=== PATIENT | male | born 1955 | race Caucasian/White ===

== ENCOUNTER 2016-11-14 05:54 | Day surgery (SDC) | payer MEDICAID, MEDICARE ==
[2016-11-14] MEDS ORDERED: Sodium Chloride 0.9% 10 ML Syringe FLUSH PRN (08:30)
[2016-11-14 11:02] VITALS: BP 136/74
--- NOTE | 2016-11-14 13:13 | OR ---
DATE OF PROCEDURE: 11/14/2016 POSTOPERATIVE CARE: Postoperative care will be provided mainly at the [address] [place] [address] [facility] in conjunction with [facility]. PREOPERATIVE DIAGNOSIS: Cataract, left eye. PREOPERATIVE DIAGNOSIS: Cataract, left eye. PROCEDURE: Phacoemulsification with intraocular lens placement, left eye. ANESTHESIA: Topical and intracameral. ESTIMATED BLOOD LOSS: Minimal. COMPLICATIONS: None. PATHOLOGY SPECIMENS: None. SURGICAL FINDINGS: None. INDICATION FOR PROCEDURE: The patient is a 60-year-old male with history of a visually significant cataract in the left eye, which interfered with activities of daily living. This consisted of a nuclear sclerosis cataract. Following careful discussion of the risks, benefits and alternatives to cataract extraction with intraocular lens placement including blindness and , the patient elected to proceed, and informed, written consent was obtained prior to the procedure. DESCRIPTION OF THE PROCEDURE: The patient was previously identified, and a yuko placed above the left eye. All sources, including the patient, indicated that the left eye was the correct eye. The patient was subsequently taken to the operating room where standard monitors were applied. The patient was then prepped and draped in the usual sterile fashion for ophthalmic surgery. Attention was first directed at the 12 o'clock position where a paracentesis port was fashioned. Shugar solution followed by Viscoat was instilled into the eye. Attention was then directed to the 8:30 position where a triplanar incision was made in a near-clear manner using a keratome. A continuous capsulorrhexis was then made using a combination of the cystotome and Utrata forceps. Hydrodissection was achieved using a balanced salt solution, and the lens rotated nicely. Phacoemulsification was then done using a modified [id number] technique without complication. Phaco time was 5.43 CDE. The remaining cortex was removed using the irrigation/aspiration handpiece. Provisc was then instilled into the eye. A Technis lens, model [id number], at 20.5 diopters was then placed in the capsular bag using an [place] injector. The remaining viscoelastic was removed using the irrigation/aspiration forceps. All wounds were then checked and found to be watertight. The lid speculum and drapes were removed. Maxitrol ointment was placed in the patient's left eye, and the eye was shielded. The patient tolerated the procedure well. The patient was instructed to follow up tomorrow. All needle and sponge counts were correct at the end of the procedure. Elsy Mix MD /[id number]
== END 2016-11-14 11:00 | disposition home or self-care (01) ==
LOC: JP.SDS 05:54
PROVIDERS: ATTEND Ophthalmology
DX: H26.9 Unspecified cataract (principal); H26.212 Cataract with neovascularization, left eye; Z88.0 Allergy status to penicillin; Z88.8 Allergy status to other drugs, medicaments and biological substances
CPT/HCPCS: 66984; C1780

== ENCOUNTER 2016-11-30 11:53 | Emergency (ER) | payer MEDICAID, MEDICARE ==
[2016-11-30 12:24] VITALS: BP 145/78
--- NOTE | 2016-11-30 12:57 | EDM.PDOC ---
[id number] LEFT ARM RASH? BRUISE? EDEMA? Time Seen by Provider: 11/30/16 12:53 Source: Reports: Patient, Family History Limitations: Reports: No limitations - History of Present Illness INITIAL COMMENTS - FREE TEXT/NARRATIVE: Pt arrived with brising in the left forearm. He was seen on the with a possible muscle pull from throwing wood. Timing: Reports: still present Location, Skin: Reports: upper extremity, left Associated symptoms: Reports: denies other symptoms, other ( no other areas of marked bruising. ) - Related Data Allergies Allergy/AdvReac Type Severity Reaction Status Date / Time ibuprofen Allergy Hives Verified 11/30/16 12:24 lidocaine Allergy Hives Verified 11/30/16 12:24 Penicillins Allergy Hives Verified 11/30/16 12:24 Home Meds: Ambulatory Orders Medication Instructions Recorded Confirmed Aspirin/Calcium Carbonate/Mag 325 mg PO DAILY 03/11/14 11/22/16 [Aspirin Buffered 325 mg Tab] Bisoprolol/Hydrochlorothiazide 1 tab PO DAILY 03/11/14 11/22/16 [Bisoprolol/HCTZ 10-6.25 MG] Cetirizine [ZyrTEC] 10 mg PO BID PRN 03/11/14 11/22/16 Lisinopril [Zestril] 20 mg PO DAILY 03/11/14 11/22/16 Lutz-3 Acid Ethyl Esters 2 gm PO BIDAC 03/11/14 11/22/16 Simvastatin [Zocor] 10 mg PO DAILY 03/11/14 11/22/16 SitaGLIPtin [Januvia] 100 mg PO DAILY 03/11/14 11/22/16 atoMOXetine [Strattera] 80 mg PO DAILY 03/11/14 11/22/16 busPIRone HCl [Buspirone HCl] 15 mg PO BID 03/11/14 11/22/16 metFORMIN [Glucophage] 1,000 mg PO BIDM 03/11/14 11/22/16 metFORMIN [Glucophage] 500 mg PO DAILY 03/11/14 11/22/16 Acetaminophen [Tylenol] 325 mg PO Q4H PRN 08/13/14 11/22/16 FLUoxetine [PROzac] 10 mg PO DAILY 08/13/14 11/22/16 Pregabalin [Lyrica] 75 mg PO TID 08/13/14 11/22/16 Sennosides/Docusate Sodium 1 each PO BID 08/13/14 11/22/16 [Senna-Docusate Sodium Tablet] Albuterol [Proair HFA] 1 puff IH Q4HR PRN 05/30/16 11/22/16 Baclofen [Baclofen] 10 mg PO ASDIRECTED PRN MDD 30 05/30/16 11/22/16 Betamethasone Valerate [Valisone 1 cm TP BID 05/30/16 11/22/16 0.1% Crm] Diclofenac Sodium [Voltaren 1%] 1 applic TP QID 05/30/16 11/22/16 Meclizine [Antivert] 25 mg PO TID 05/30/16 11/22/16 Meloxicam [Meloxicam] 15 mg PO DAILY 05/30/16 11/22/16 Montelukast Sodium [Singulair] 10 mg PO DAILY 05/30/16 11/22/16 Oxybutynin Chloride [Ditropan Xl] 10 mg PO DAILY 05/30/16 11/22/16 Pyrithione Zinc [Dermazinc] 1 ml TP DAILY PRN 05/30/16 11/22/16 traMADol HCl [Tramadol HCl] 50 mg PO Q6H PRN 05/30/16 11/22/16 Past Medical History HEENT History: Reports: Cataract, Impaired vision Cardiovascular History: Reports: High cholesterol, Hypertension Respiratory History: Reports: Asthma, Sleep apnea Gastrointestinal History: Reports: Cholelithiasis Psychiatric History: Reports: Anxiety, Depression Endocrine/Metabolic History: Reports: Diabetes, type II, Obesity/BMI 30+ Dermatologic History: Reports: Eczema - Infectious Disease History Infectious Disease History: Reports: Chicken pox, Measles - Past Surgical History GI Surgical History: Reports: Cholecystectomy, Colonoscopy, Hernia repair/other Musculoskeletal Surgical History: Reports: Arthroscopic knee, Hip replacement, Knee replacement, Shoulder replacement, Shoulder surgery Other Musculoskeletal Surgeries/Procedures:: right shoulder replaced tree times with infection on second replacement Social & Family History - Tobacco Use Smoking Status *Q: Former Smoker Years of Tobacco use: 3 Used Tobacco, but Quit: Yes Month Tobacco Last Used: dec Second Hand Smoke Exposure: No - Caffeine Use Caffeine Use: Reports: None - Alcohol Use Days Per Week of Alcohol Use: 1 Number of Drinks Per Day: 1 Total Drinks Per Week: 1 - Recreational Drug Use Recreational Drug Use: No ED ROS GENERAL - Review of Systems Review Of Systems: See Below Constitutional: Reports: no symptoms HEENT: Reports: No symptoms Respiratory: Reports: No Symptoms Cardiovascular: Reports: No symptoms Endocrine: Reports: no symptoms GI/Abdominal: Reports: No symptoms : Reports: no symptoms Musculoskeletal: Reports: other ( Pain in the left forearm. ) Skin: Reports: bruising Neurological: Reports: No Symptoms ED EXAM, SKIN/RASH Exam: See Below Text/Narrative:: Pt has bruising in the left forearm. This tender up by the elebow. He had a muscle pull he was seen with on Nov 22. Exam Limited By: No limitations General Appearance: alert, anxious Ears: normal TMs Nose: normal inspection Throat/Mouth: Normal inspection Head: atraumatic Extremities: other ( Left forearm is discolored. and this appeared on the am of today. ) Neurological: alert, oriented Course - Vital Signs Last Recorded V/S: Last Vital Signs Temp 34.9 C L 11/30/16 12:22 Pulse 59 L 11/30/16 12:22 Resp 14 11/30/16 12:22 BP 145/78 H 11/30/16 12:22 Pulse Ox 97 11/30/16 12:22 - Orders/Labs/Meds Labs: Laboratory Tests 11/30/16 11/30/16 Range/Units 12:53 12:58 WBC 7.2 (4.5-11.0) K/uL RBC 5.20 (4.30-5.90) M/uL Hgb 13.8 D (12.0-15.0) g/dL Hct 41.4 (40.0-54.0) % MCV 80 (80-98) fL MCH 27 (27-31) pg MCHC 33 (32-36) % Plt Count 222 (150-400) K/uL Neut % (Auto) 64 (36-66) % Lymph % (Auto) 19 L (24-44) % [place] % (Auto) 12 H (2-6) % Eos % (Auto) 5 H (2-4) % Baso % (Auto) 1 (0-1) % APTT 24.3 L (27.0-36.0) sec - Re-Assessments/Exams Free Text/Narrative Re-Assessment/Exam: 11/30/16 13:39 platlet count was good. this is from his previous muscle pull 12/01/16 07:56 Pt had a normal ptt. Departure - Departure Time of Disposition: 13:40 Disposition: Home, Self-Care 01 Condition: fair Clinical Impression: Muscle injury, Hematoma of arm Instructions: Hematoma, [id number] Referrals: Sylvie Fang PA [Primary Care Provider] - Forms: ED Department Discharge Care Plan Goals: soak in warm water twice daily, give 10 days to resolve.
== END 2016-11-30 14:15 | disposition home or self-care (01) ==
LOC: JP.ED 11:53
DX: S50.12XA Contusion of left forearm, initial encounter (principal); E78.00 Pure hypercholesterolemia, unspecified; I10 Essential (primary) hypertension; E11.9 Type 2 diabetes mellitus without complications; E66.9 Obesity, unspecified; Z88.0 Allergy status to penicillin; Z88.6 Allergy status to analgesic agent; Z88.8 Allergy status to other drugs, medicaments and biological substances; Z79.82 Long term (current) use of aspirin; Z79.899 Other long term (current) drug therapy; Z98.49 Cataract extraction status, unspecified eye; Z68.30 Body mass index [BMI] 30.0-30.9, adult; Z90.89 Acquired absence of other organs; Z98.890 Other specified postprocedural states; Z96.611 Presence of right artificial shoulder joint; Z96.649 Presence of unspecified artificial hip joint; Z96.659 Presence of unspecified artificial knee joint; Z87.891 Personal history of nicotine dependence; X58.XXXA Exposure to other specified factors, initial encounter
CPT/HCPCS: 36415; 85025; 85730; 99282; 99284

== ENCOUNTER 2016-12-07 10:01 | Emergency (ER) | payer MEDICARE ==
[2016-12-07 10:50] VITALS: BP 127/67
--- NOTE | 2016-12-07 10:50 | EDM.PDOC ---
ED HPI Trauma - General Chief Complaint: Upper Extremity Injury/Pain Stated Complaint: LT ARM SWOLLEN/NUMB Time Seen by Provider: 12/07/16 11:05 Source: Reports: Patient, RN notes reviewed History Limitations: Reports: No limitations - History of Present Illness INITIAL COMMENTS - FREE TEXT/NARRATIVE: 60-year-old gentleman presents emergency department day complaint of right arm swelling he recently was hospitalized for a chronic infection of the skin had PICC line placement in the right arm this was removed 3 weeks ago he has had swelling and pain in the right arm since that time. Was initially evaluated in the urgent care clinic today recommended reporting to the emergency department for further evaluation Allergies/ADRs: Allergies ibuprofen Allergy (Verified 12/07/16 10:42) Hives lidocaine Allergy (Verified 12/07/16 10:42) Hives Penicillins Allergy (Verified 12/07/16 10:42) Hives Home Medications: Ambulatory Orders Aspirin/Calcium Carbonate/Mag [Aspirin Buffered 325 mg Tab] 325 mg PO DAILY [Confirmed 12/07/16] Bisoprolol/Hydrochlorothiazide [Bisoprolol/HCTZ 10-6.25 MG] 1 tab PO DAILY 03/11 [Confirmed 12/07/16] Cetirizine [ZyrTEC] 10 mg PO BID PRN 03/11/14 [Confirmed 12/07/16] Lisinopril [Zestril] 20 mg PO DAILY 03/11/14 [Confirmed 12/07/16] [place]-3 Acid Ethyl Esters 2 gm PO BIDAC 03/11/14 [Confirmed 12/07/16] Simvastatin [Zocor] 10 mg PO DAILY 03/11/14 [Confirmed 12/07/16] SitaGLIPtin [Januvia] 100 mg PO DAILY 03/11/14 [Confirmed 12/07/16] atoMOXetine [Strattera] 80 mg PO DAILY 03/11/14 [Confirmed 12/07/16] busPIRone HCl [Buspirone HCl] 15 mg PO BID 03/11/14 [Confirmed 12/07/16] metFORMIN [Glucophage] 1,000 mg PO BIDM 03/11/14 [Confirmed 12/07/16] metFORMIN [Glucophage] 500 mg PO DAILY 03/11/14 [Confirmed 12/07/16] Acetaminophen [Tylenol] 325 mg PO Q4H PRN 08/13/14 [Confirmed 12/07/16] FLUoxetine [PROzac] 10 mg PO DAILY 08/13/14 [Confirmed 12/07/16] Pregabalin [Lyrica] 75 mg PO TID 08/13/14 [Confirmed 12/07/16] Sennosides/Docusate Sodium [Senna-Docusate Sodium Tablet] 1 each PO BID [Confirmed 12/07/16] Albuterol [Proair HFA] 1 puff IH Q4HR PRN 05/30/16 [Confirmed 12/07/16] Baclofen [Baclofen] 10 mg PO ASDIRECTED PRN MDD 30 05/30/16 [Confirmed 12/07/16] Betamethasone Valerate [Valisone 0.1% Crm] 1 cm TP BID 05/30/16 [Confirmed 12/07] Diclofenac Sodium [Voltaren 1%] 1 applic TP QID 05/30/16 [Confirmed 12/07/16] Meclizine [Antivert] 25 mg PO TID 05/30/16 [Confirmed 12/07/16] Meloxicam [Meloxicam] 15 mg PO DAILY 05/30/16 [Confirmed 12/07/16] Montelukast Sodium [Singulair] 10 mg PO DAILY 05/30/16 [Confirmed 12/07/16] Oxybutynin Chloride [Ditropan Xl] 10 mg PO DAILY 05/30/16 [Confirmed 12/07/16] Pyrithione Zinc [Dermazinc] 1 ml TP DAILY PRN 05/30/16 [Confirmed 12/07/16] traMADol HCl [Tramadol HCl] 50 mg PO Q6H PRN 05/30/16 [Confirmed 12/07/16] Past Medical History HEENT History: Reports: Cataract, Impaired vision Cardiovascular History: Reports: High cholesterol, Hypertension Respiratory History: Reports: Asthma, Sleep apnea Gastrointestinal History: Reports: Cholelithiasis Psychiatric History: Reports: Anxiety, Depression Endocrine/Metabolic History: Reports: Diabetes, type II, Obesity/BMI 30+ Dermatologic History: Reports: Eczema - Infectious Disease History Infectious Disease History: Reports: Chicken pox, Measles - Past Surgical History GI Surgical History: Reports: Cholecystectomy, Colonoscopy, Hernia repair/other Musculoskeletal Surgical History: Reports: Arthroscopic knee, Hip replacement, Knee replacement, Shoulder replacement, Shoulder surgery Other Musculoskeletal Surgeries/Procedures:: right shoulder replaced tree times with infection on second replacement Social & Family History - Tobacco Use Smoking Status *Q: Never Smoker Years of Tobacco use: 3 Used Tobacco, but Quit: Yes Month Tobacco Last Used: dec Second Hand Smoke Exposure: No - Caffeine Use Caffeine Use: Reports: None - Alcohol Use Days Per Week of Alcohol Use: 1 Number of Drinks Per Day: 1 Total Drinks Per Week: 1 - Recreational Drug Use Recreational Drug Use: No Review of Systems - Review of Systems Review Of Systems: See Below Constitutional: Reports: no symptoms Respiratory: Reports: No Symptoms Cardiovascular: Reports: no symptoms Musculoskeletal: Reports: arm pain Trauma Exam - Physical Exam Exam: See Below Text/Narrative:: Examination of the right arm he does have marked edema in the forearm and in the upper extremity radial pulses 2+ I don't appreciate any erythema there is no particular warmth it is tender to the touch in the biceps area full range of motion of all digits Exam Limited By: No limitations General Appearance: Reports: alert, WD/WN, no apparent distress Respiratory Exam: Reports: no respiratory distress, lungs clear, normal breath sounds, no accessory muscle use Cardiovascular: Reports: regular rate, rhythm, no murmur Course - Vital Signs Last Recorded V/S: Last Vital Signs Temp 98.1 F 12/07/16 10:48 Pulse 60 12/07/16 10:48 Resp 14 12/07/16 10:48 BP 127/67 12/07/16 10:48 Pulse Ox 97 12/07/16 10:48 - Orders/Labs/Meds Labs: Laboratory Tests 12/07/16 12/07/16 12/07/16 Range/Units 11:19 12:02 12:02 WBC 7.0 (4.5-11.0) K/uL RBC 4.85 (4.30-5.90) M/uL Hgb 12.8 (12.0-15.0) g/dL Hct 39.4 L (40.0-54.0) % MCV 81 (80-98) fL MCH 26 L (27-31) pg MCHC 33 (32-36) % Plt Count 209 (150-400) K/uL Neut % (Auto) 59 (36-66) % Lymph % (Auto) 23 L (24-44) % [place] % (Auto) 11 H (2-6) % Eos % (Auto) 6 H (2-4) % Baso % (Auto) 1 (0-1) % D-Dimer, Quantitative 320 (0.0-400.0) ng/mL Sodium 145 (140-148) mmol/L Potassium 4.5 (3.6-5.2) mmol/L Chloride 108 (100-108) mmol/L Carbon Dioxide 29 (21-32) mmol/L Anion Gap 8.5 (5.0-14.0) mmol/L BUN 20 H (7-18) mg/dL Creatinine 1.1 (0.8-1.3) mg/dL Est Cr Clr Drug Dosing 69.63 mL/min Estimated GFR (MDRD) > 60 (>60) Glucose 107 H (74-106) mg/dL Calcium 9.8 (8.5-10.1) mg/dL Departure - Departure Time of Disposition: 12:37 Disposition: Home, Self-Care 01 Condition: good Clinical Impression: Arm edema Forms: ED Department Discharge Additional Instructions: Consults with physical therapy has been added they will call you next week for an appointment time at your convenience, call return emergency department with worsening of symptoms - Assessment/Plan Plan: Assessment Acuity = acute Site and laterality = right arm edema Etiology = unclear etiology possibly related to recent PICC line placement and removal Manifestations = none Location of injury = home Lab values = CBC unremarkable CMP unremarkable d-dimer negative at 320 Plan He was placed in a [place] to wrap consult with physical therapy for further evaluation and treatment Patient was in agreement with the plan all questions were answered, they were instructed to return to the emergency department or call for worsening symptoms. This note was dictated using [email or web address] voice recognition software please call with any questions.
== END 2016-12-07 13:03 | disposition home or self-care (01) ==
LOC: JP.ED 10:01
DX: R60.0 Localized edema (principal); I10 Essential (primary) hypertension; E78.00 Pure hypercholesterolemia, unspecified; J45.909 Unspecified asthma, uncomplicated; F41.9 Anxiety disorder, unspecified; F32.9 Major depressive disorder, single episode, unspecified; E11.9 Type 2 diabetes mellitus without complications; E66.9 Obesity, unspecified; Z68.39 Body mass index [BMI] 39.0-39.9, adult; Z90.49 Acquired absence of other specified parts of digestive tract; Z96.659 Presence of unspecified artificial knee joint; Z96.649 Presence of unspecified artificial hip joint; Z96.619 Presence of unspecified artificial shoulder joint; Z98.890 Other specified postprocedural states; Z79.82 Long term (current) use of aspirin; Z79.899 Other long term (current) drug therapy; Z88.0 Allergy status to penicillin; Z88.8 Allergy status to other drugs, medicaments and biological substances
CPT/HCPCS: 36415; 80048; 85025; 85379; 99282; 99284

== ENCOUNTER 2016-12-19 06:34 | Day surgery (SDC) | payer MEDICARE ==
[2016-12-19] MEDS ORDERED: Sodium Chloride 0.9% 10 ML Syringe FLUSH PRN (07:00)
[2016-12-19 08:44] VITALS: BP 142/72
--- NOTE | 2016-12-19 11:55 | OR ---
DATE OF PROCEDURE: 12/19/2016 POSTOPERATIVE CARE: Postoperative care will be provided mainly at the [address] [place] [address] [facility] in conjunction with [facility]. PREOPERATIVE DIAGNOSIS: Cataract, right eye. PREOPERATIVE DIAGNOSIS: Cataract, right eye. PROCEDURE: Phacoemulsification with intraocular lens placement, right eye. ANESTHESIA: Topical and intracameral. ESTIMATED BLOOD LOSS: Minimal. COMPLICATIONS: None. PATHOLOGY SPECIMENS: None. SURGICAL FINDINGS: None. INDICATION FOR PROCEDURE: The patient is a 61-year-old male with history of a visually significant cataract in the right eye, which interfered with activities of daily living. This consisted of a nuclear sclerosis cataract. Following careful discussion of the risks, benefits and alternatives to cataract extraction with intraocular lens placement including blindness and , the patient elected to proceed, and informed, written consent was obtained prior to the procedure. DESCRIPTION OF THE PROCEDURE: The patient was previously identified, and a yuko placed above the right eye. All sources, including the patient, indicated that the right eye was the correct eye. The patient was subsequently taken to the operating room where standard monitors were applied. The patient was then prepped and draped in the usual sterile fashion for ophthalmic surgery. Attention was first directed at the 12 o'clock position where a paracentesis port was fashioned. Shugar solution followed by Viscoat was instilled into the eye. Attention was then directed to the 8:30 position where a triplanar incision was made in a near-clear manner using a keratome. A continuous capsulorrhexis was then made using a combination of the cystotome and Utrata forceps. Hydrodissection was achieved using a balanced salt solution, and the lens rotated nicely. Phacoemulsification was then done using a modified jznova-liy-evuymbo technique without complication. Phaco time was 5.54 CDE. The remaining cortex was removed using the irrigation/aspiration handpiece. Provisc was then instilled into the eye. A Technis lens, model [id number], at 19.5 diopters was then placed in the capsular bag using an [place] injector. The remaining viscoelastic was removed using the irrigation/aspiration forceps. All wounds were then checked and found to be watertight. The lid speculum and drapes were removed. Maxitrol ointment was placed in the patient's right eye, and the eye was shielded. The patient tolerated the procedure well. The patient was instructed to follow up tomorrow. All needle and sponge counts were correct at the end of the procedure. Elsy Mix MD /[id number]
== END 2016-12-19 09:00 | disposition home or self-care (01) ==
LOC: JP.SDS 06:34
PROVIDERS: ATTEND Ophthalmology
PROC: 08RJ3JZ Replacement of Right Lens with Synthetic Substitute, Percutaneous Approach (ICD-10-PCS; principal; 2016-12-19)
DX: H25.11 Age-related nuclear cataract, right eye (principal); H28 Cataract in diseases classified elsewhere
CPT/HCPCS: 66984; C1780

== ENCOUNTER 2017-07-30 12:46 | Emergency (ER) | payer MEDICARE ==
--- NOTE | 2017-07-30 13:32 | EDM.PDOC ---
ED HPI GENERAL MEDICAL PROBLEM - General Chief Complaint: Upper Extremity Injury/Pain Stated Complaint: ARM PAIN Time Seen by Provider: 07/30/17 13:15 Source of Information: Reports: Patient, Old Records, RN History Limitations: Reports: No Limitations - History of Present Illness INITIAL COMMENTS - FREE TEXT/NARRATIVE: 61 yo male presents with R shoulder pain since earlier today in PT. He has a hx of shoulder replacement on that side. Has pain meds and a sling at home to use as needed. Was advised in PT to ice the area several times a day. Is here for a 2nd opinion. Onset: Today Onset Date: 07/30/17 Onset Time: 12:00 Duration: Minutes:, Constant Location: Reports: Upper Extremity, Right Quality: Reports: Ache Severity: Mild Improves with: Reports: Rest Worsens with: Reports: Movement Context: Reports: Other (overstretched in PT today) Associated Symptoms: Reports: No Other Symptoms Treatments [employer]THOP[employer]: Reports: Other (see below) (none) Right Shoulder Pain Score (Numeric/FACES): 2 - Related Data Allergies Allergy/AdvReac Type Severity Reaction Status Date / Time ibuprofen Allergy Hives Verified 12/16/16 08:56 lidocaine Allergy Hives Verified 12/16/16 08:56 Penicillins Allergy Hives Verified 12/16/16 08:56 Home Meds: Home Meds Aspirin/Calcium Carbonate/Mag [Aspirin Buffered 325 mg Tab] 325 mg PO DAILY [History] Bisoprolol/Hydrochlorothiazide [Bisoprolol/HCTZ 10-6.25 MG] 6.25 - 10 tab PO DAILY 03/11/14 [History] Cetirizine [ZyrTEC] 10 mg PO BID PRN 03/11/14 [History] Lisinopril [Zestril] 20 mg PO DAILY 03/11/14 [History] [place]-3 Acid Ethyl Esters 2 gm PO BIDAC 03/11/14 [History] Simvastatin [Zocor] 10 mg PO DAILY 03/11/14 [History] SitaGLIPtin [Januvia] 100 mg PO DAILY 03/11/14 [History] atoMOXetine [Strattera] 80 mg PO DAILY 03/11/14 [History] busPIRone HCl [Buspirone HCl] 15 mg PO BID 03/11/14 [History] metFORMIN [Glucophage] 1,000 mg PO BIDM 03/11/14 [History] metFORMIN [Glucophage] 500 mg PO DAILY 03/11/14 [History] Acetaminophen [Tylenol] 325 mg PO Q4H PRN 08/13/14 [History] FLUoxetine [PROzac] 10 mg PO DAILY 08/13/14 [History] Pregabalin [Lyrica] 75 mg PO TID 08/13/14 [History] Sennosides/Docusate Sodium [Senna-Docusate Sodium Tablet] 1 each PO BID [History] Albuterol [Proair HFA] 1 puff IH Q4HR PRN 05/30/16 [History] Baclofen [Baclofen] 10 mg PO ASDIRECTED PRN MDD 30 05/30/16 [History] Betamethasone Valerate [Valisone 0.1% Crm] 1 cm TP BID 05/30/16 [History] Diclofenac Sodium [Voltaren 1%] 1 applic TP QID 05/30/16 [History] Meclizine [Antivert] 25 mg PO TID 05/30/16 [History] Meloxicam [Meloxicam] 15 mg PO DAILY 05/30/16 [History] Montelukast Sodium [Singulair] 10 mg PO DAILY 05/30/16 [History] Oxybutynin Chloride [Ditropan Xl] 10 mg PO DAILY 05/30/16 [History] Pyrithione Zinc [Dermazinc] 1 ml TP DAILY PRN 05/30/16 [History] traMADol HCl [Tramadol HCl] 50 mg PO Q6H PRN 05/30/16 [History] Past Medical History HEENT History: Reports: Cataract, Impaired Vision Other HEENT History: wears glasses Cardiovascular History: Reports: High Cholesterol, Hypertension Respiratory History: Reports: Asthma, Sleep Apnea Gastrointestinal History: Reports: Cholelithiasis Musculoskeletal History: Reports: None Psychiatric History: Reports: Anxiety, Depression Endocrine/Metabolic History: Reports: Diabetes, Type II, Obesity/BMI 30+ Dermatologic History: Reports: Eczema - Infectious Disease History Infectious Disease History: Reports: Chicken Pox, Measles - Past Surgical History HEENT Surgical History: Reports: Cataract Surgery, Other (See Below) GI Surgical History: Reports: Cholecystectomy, Colonoscopy, Hernia Repair/Other Musculoskeletal Surgical History: Reports: Arthroscopic Knee, Hip Replacement, Knee Replacement, Shoulder Replacement, Shoulder Surgery Dermatological Surgical History: Reports: None Social & Family History - Tobacco Use Smoking Status *Q: Never Smoker Years of Tobacco use: 3 Used Tobacco, but Quit: Yes Month Tobacco Last Used: dec Second Hand Smoke Exposure: No - Caffeine Use Caffeine Use: Reports: None - Alcohol Use Days Per Week of Alcohol Use: 1 Number of Drinks Per Day: 1 Total Drinks Per Week: 1 - Recreational Drug Use Recreational Drug Use: No Review of Systems - Review of Systems Review Of Systems: See Below Constitutional: Reports: No Symptoms Musculoskeletal: Reports: Shoulder Pain (right) Skin: Reports: No Symptoms Neurological: Reports: No Symptoms ED EXAM, GENERAL - Physical Exam Exam: See Below Exam Limited By: No Limitations General Appearance: Alert, WD/WN, No Apparent Distress, Obese Extremities: Normal Inspection, Non-Tender, No Pedal Edema, Limited Range of Motion (ROM is slightly restricted today, but he states this is his norm since his surgery.) Neurological: Alert, Oriented, CN II-XII Intact, Normal Cognition, No Motor/ Sensory Deficits Psychiatric: Normal Affect, Normal Mood Skin Exam: Warm, Dry, Intact, Normal Color, No Rash Course - Vital Signs Last Recorded V/S: Last Vital Signs Temp 36 C 07/30/17 13:14 Pulse 73 07/30/17 13:14 Resp 18 07/30/17 13:14 BP 125/80 07/30/17 13:14 Pulse Ox 97 07/30/17 13:14 Departure - Departure Time of Disposition: 13:31 Disposition: Home, Self-Care 01 Condition: Good Clinical Impression: Shoulder pain, right Qualifiers: Chronicity: unspecified Qualified Code(s): M25.511 - Pain in right shoulder - Discharge Information Referrals: Sylvie Fang PA [Primary Care Provider] - Forms: ED Department Discharge Additional Instructions: Use your pain meds as needed. Use your sling if the pain worsens. If you are not improving in a week, then see your family doctor for recheck. Ice as directed.
[2017-07-30 13:38] VITALS: BP 125/80
== END 2017-07-30 13:34 | disposition home or self-care (01) ==
LOC: JP.ED 12:46
DX: M25.511 Pain in right shoulder (principal); I10 Essential (primary) hypertension; E78.00 Pure hypercholesterolemia, unspecified; J45.909 Unspecified asthma, uncomplicated; F32.9 Major depressive disorder, single episode, unspecified; E11.9 Type 2 diabetes mellitus without complications; Z87.891 Personal history of nicotine dependence; Z79.82 Long term (current) use of aspirin; Z79.84 Long term (current) use of oral hypoglycemic drugs; Z79.899 Other long term (current) drug therapy; Z88.6 Allergy status to analgesic agent; Z88.0 Allergy status to penicillin; Z88.4 Allergy status to anesthetic agent; Z96.611 Presence of right artificial shoulder joint
CPT/HCPCS: 99283

== ENCOUNTER 2018-04-23 06:50 | Day surgery (SDC) | payer MEDICARE, MEDICAID ==
[2018-04-23] MEDS ORDERED: Propofol 200 MG/20 ML SDV ONE (08:01)
[2018-04-23] MEDS ORDERED: fentaNYL 100 MCG/2 ML SDV ONE (08:02)
[2018-04-23] MEDS ORDERED: Midazolam 1 MG/ML 2 ML SDV ONE (08:02)
[2018-04-23] MEDS ORDERED: Albuterol/Ipratropium 3.0-0.5 MG/3 ML Neb Soln NEB ONE (09:15)
[2018-04-23] MEDS ORDERED: Dextrose 5%-Lactated Ringers 1,000 ML IV SCH (09:15)
[2018-04-23] MEDS ORDERED: ceFAZolin 2 GM in Sodium Chloride 0.9% 50 ML IV ONE (09:30)
[2018-04-23] MEDS ORDERED: Bupivacaine 0.5% 50 ML MDV ONE (09:38)
[2018-04-23 12:43] VITALS: BP 125/74
--- NOTE | 2018-04-30 14:33 | OR ---
DATE OF PROCEDURE: 04/23/2018 PREOPERATIVE DIAGNOSIS: Mass involving the volar aspect of left index finger. POSTOPERATIVE DIAGNOSIS: Subfascial mass involving the volar aspect of left index finger. OPERATIVE PROCEDURE: Excision of subfascial mass on the volar aspect of left index finger ([id number]). ANESTHESIA: IV sedation plus digital block. INDICATIONS: In summary, this is a 62-year-old presenting with a nodular lesion on the volar aspect of the left index finger. This was located just to the ulnar side of the flexor tendon along the area between the proximal and distal interphalangeal joints. The plan is to proceed with excision of this with a digital block complemented with IV sedation. Potential risks including bleeding, infection, injury to the tendons and/or nerves in the area, potential recurrence of lesion were all reviewed, and the patient wishes to proceed. DETAILS OF PROCEDURE: The patient was taken to the operating room and after IV sedation was administered, digital block was placed the base of the left index finger. The left hand was then prepped and draped. Following this, Annie drain was used to put pressure on the index finger, from the tip down to the base, and then a tourniquet applied. A transversely-oriented incision over the lesion was then made and carried down through the skin and subcutaneous tissue. This appeared to be below the investing fascia and was more or less adjacent to the flexor tendon sheath in the area noted above. This lesion was then removed intact and measured 1.1 cm in terms of lesion plus margin. Off the field, this was subsequently transected and appeared to be a solid and perhaps lipomatous-type lesion. The area was then inspected and underlying digital nerve confirmed to be intact as was the adjacent flexor tendon sheath. The incision was then closed with some 5-0 Vicryl stitch deep and then a 5-0 Prolene stitch. Dressing was applied. The patient was taken to the recovery room in a satisfactory condition. Damir Flores MD /[id number]
== END 2018-04-23 12:45 | disposition home or self-care (01) ==
LOC: JP.SDS 06:50
PROVIDERS: ATTEND Surgery
DX: L85.9 Epidermal thickening, unspecified (principal); L83 Acanthosis nigricans; J45.909 Unspecified asthma, uncomplicated; E11.9 Type 2 diabetes mellitus without complications; E78.00 Pure hypercholesterolemia, unspecified; Z88.0 Allergy status to penicillin; Z88.4 Allergy status to anesthetic agent; Z88.6 Allergy status to analgesic agent
CPT/HCPCS: 26116; 88305; J0690; J2250; J2704; J3010; J3490; J7042; J7050; J7620-GY

== ENCOUNTER 2018-05-19 11:58 | Emergency (ER) | payer MEDICARE ==
[2018-05-19 12:19] VITALS: BP 136/59
--- NOTE | 2018-05-19 12:41 | EDM.PDOC ---
ED HPI GENERAL MEDICAL PROBLEM - General Chief Complaint: Syncope Stated Complaint: FROM CLINIC, NEEDS EKG Time Seen by Provider: 05/19/18 12:31 Source of Information: Reports: Patient, RN Notes Reviewed History Limitations: Reports: No Limitations - History of Present Illness INITIAL COMMENTS - FREE TEXT/NARRATIVE: 62-year-old gentleman sent over from clinic today for increasing shortness of breath on exertion with syncopal event. He's had 2 syncopal events within the last 48 hours, does complain of shortness of breath mainly with exertion. Does have a known history of obstructive sleep apnea as well as diabetes mellitus type 2 does wear CPAP at night. Strong family history for coronary artery disease. He has not had any cardiac events. Denies any chest pain nausea vomiting no GI symptoms - Related Data Allergies Allergy/AdvReac Type Severity Reaction Status Date / Time ibuprofen Allergy Hives Verified 05/19/18 12:08 lidocaine Allergy Hives Verified 05/19/18 12:08 Penicillins Allergy Hives Verified 05/19/18 12:08 Home Meds: Home Meds Aspirin/Calcium Carbonate/Mag [Aspirin Buffered 325 mg Tab] 325 mg PO DAILY [History] Bisoprolol/Hydrochlorothiazide [Bisoprolol/HCTZ 10-6.25 MG] 6.25 - 10 tab PO DAILY 03/11/14 [History] Cetirizine [ZyrTEC] 10 mg PO DAILY 03/11/14 [History] Lisinopril [Zestril] 20 mg PO DAILY 03/11/14 [History] Calvin-3 Acid Ethyl Esters 2 gm PO BIDAC 03/11/14 [History] Simvastatin [Zocor] 10 mg PO DAILY 03/11/14 [History] SitaGLIPtin [Januvia] 100 mg PO DAILY 03/11/14 [History] atoMOXetine [Strattera] 80 mg PO DAILY 03/11/14 [History] busPIRone HCl [Buspirone HCl] 15 mg PO BID 03/11/14 [History] metFORMIN [Glucophage] 1,000 mg PO BIDM 03/11/14 [History] metFORMIN [Glucophage] 500 mg PO DAILY 03/11/14 [History] FLUoxetine [PROzac] 10 mg PO DAILY 08/13/14 [History] Pregabalin [Lyrica] 75 mg PO TID 08/13/14 [History] Sennosides/Docusate Sodium [Senna-Docusate Sodium Tablet] 1 each PO BID [History] Oxybutynin Chloride [Ditropan Xl] 10 mg PO DAILY 05/30/16 [History] Sodium Chloride 5% [Naomi 128 5% Ophth Oint] 1 applic EYELF BEDTIME 04/21/18 [ History] Cephalexin [Keflex] 250 mg PO DAILY 04/23/18 [History] Past Medical History HEENT History: Reports: Cataract, Impaired Vision Other HEENT History: wears glasses Cardiovascular History: Reports: High Cholesterol, Hypertension Respiratory History: Reports: Asthma, Sleep Apnea, SOB Gastrointestinal History: Reports: Cholelithiasis Psychiatric History: Reports: Anxiety, Depression, Learning Disability Endocrine/Metabolic History: Reports: Diabetes, Type II, Obesity/BMI 30+ Dermatologic History: Reports: Eczema - Infectious Disease History Infectious Disease History: Reports: Chicken Pox, Measles, Mumps - Past Surgical History Head Surgeries/Procedures: Reports: None HEENT Surgical History: Reports: Cataract Surgery, Other (See Below) Cardiovascular Surgical History: Reports: None Respiratory Surgical History: Reports: None GI Surgical History: Reports: None, Cholecystectomy, Colonoscopy, Hernia Repair/ Other Endocrine Surgical History: Reports: None Neurological Surgical History: Reports: None Musculoskeletal Surgical History: Reports: Arthroscopic Knee, Hip Replacement, Knee Replacement, Shoulder Replacement, Shoulder Surgery Social & Family History - Family History Family Medical History: Noncontributory - Tobacco Use Smoking Status *Q: Former Smoker Used Tobacco, but Quit: Yes Month/Year Tobacco Last Used: 1997 Second Hand Smoke Exposure: No - Caffeine Use Caffeine Use: Reports: Soda - Recreational Drug Use Recreational Drug Use: No ED ROS GENERAL - Review of Systems Review Of Systems: See Below Constitutional: Reports: No Symptoms. Denies: Fever, Chills HEENT: Reports: No Symptoms Respiratory: Reports: Shortness of Breath Cardiovascular: Reports: Dyspnea on Exertion. Denies: Chest Pain, Palpitations GI/Abdominal: Reports: No Symptoms : Reports: No Symptoms Musculoskeletal: Reports: No Symptoms Skin: Reports: No Symptoms Neurological: Reports: No Symptoms ED EXAM, GENERAL - Physical Exam Exam: See Below Free Text/Narrative:: General: Male, not in any distress, alert and oriented x3 HEENT: head is atraumatic normocephalic, eyes pupils equal round reactive to light, sclera clear no conjunctivitis appreciated. Ears tympanic membranes clear and pickering landmarks and light reflex are present bilaterally canals are clear. Nose no septal deviation, nares are clear, no blood present. Mouth mucosa is moist and pink no erythema or exudate noted in soft palate, tongue is midline uvula is midline, dentition is intact. Neck: Supple no thyromegaly no tracheal deviation. Nodes: Cervical nodes subclavicular nodes nontender no palpable lymphadenopathy noted. Lungs: clear to auscultation bilaterally with symmetrical respirations, no adventitious noise appreciated. CV: Regular rate and rhythm S1 and S2 appreciated no murmurs rubs or gallops noted. Abdomen: Soft, obese, nontender, no palpable masses or organomegaly appreciated , no distention no guarding bowel sounds are present, . Neuro: Cranial nerves II through XII grossly intact Skin: Warm and dry, intact Extremities: No lower extremity edema appreciated . Course - Vital Signs Last Recorded V/S: Last Vital Signs Temp 95.4 F 05/19/18 12:12 Pulse 64 05/19/18 12:12 Resp 16 05/19/18 12:12 BP 136/59 L 05/19/18 12:12 Pulse Ox 95 05/19/18 12:12 - Orders/Labs/Meds Orders: Active Orders 24 hr Category Date Time Status Cardiac Monitoring [RC] .As Directed Care 05/19/18 12:37 Active EKG Documentation Completion [RC] ASDIRECTED Care 05/19/18 12:38 Active UA W/MICROSCOPIC [URIN] Stat Lab 05/19/18 12:37 Ordered EKG 12 Lead [EK] Stat Ther 05/19/18 12:37 Ordered Labs: Laboratory Tests 05/19/18 05/19/18 05/19/18 Range/Units 12:37 12:45 12:45 WBC 9.9 (4.5-11.0) K/uL RBC 5.43 (4.30-5.90) M/uL Hgb 14.9 D (12.0-15.0) g/dL Hct 44.3 (40.0-54.0) % MCV 82 (80-98) fL MCH 27 (27-31) pg MCHC 34 (32-36) % Plt Count 226 (150-400) K/uL Neut % (Auto) 71 H (36-66) % Lymph % (Auto) 16 L (24-44) % [place] % (Auto) 9 H (2-6) % Eos % (Auto) 3 (2-4) % Baso % (Auto) 1 (0-1) % D-Dimer, Quantitative 122 (0.0-400.0) ng/mL Sodium 138 L (140-148) mmol/L Potassium 4.6 (3.6-5.2) mmol/L Chloride 102 (100-108) mmol/L Carbon Dioxide 24 (21-32) mmol/L Anion Gap 16.6 H (5.0-14.0) mmol/L BUN 21 H (7-18) mg/dL Creatinine 1.4 H (0.8-1.3) mg/dL Est Cr Clr Drug Dosing 51.57 mL/min Estimated GFR (MDRD) 51 L (>60) Glucose 91 (74-106) mg/dL Calcium 10.1 (8.5-10.1) mg/dL Total Bilirubin 0.5 D (0.2-1.0) mg/dL AST 84 H (15-37) U/L ALT 181 H (12-78) U/L Alkaline Phosphatase 86 (46-116) U/L Troponin I < 0.017 (0.000-0.056) ng/mL NT-Pro-B Natriuret Pep (5-125) pg/mL Total Protein 7.6 (6.4-8.2) g/dL Albumin 3.9 (3.4-5.0) g/dL Globulin 3.7 H (2.3-3.5) g/dL Albumin/Globulin Ratio 1.1 L (1.2-2.2) 05/19/18 Range/Units 13:27 WBC (4.5-11.0) K/uL RBC (4.30-5.90) M/uL Hgb (12.0-15.0) g/dL Hct (40.0-54.0) % MCV (80-98) fL MCH (27-31) pg MCHC (32-36) % Plt Count (150-400) K/uL Neut % (Auto) (36-66) % Lymph % (Auto) (24-44) % [place] % (Auto) (2-6) % Eos % (Auto) (2-4) % Baso % (Auto) (0-1) % D-Dimer, Quantitative (0.0-400.0) ng/mL Sodium (140-148) mmol/L Potassium (3.6-5.2) mmol/L Chloride (100-108) mmol/L Carbon Dioxide (21-32) mmol/L Anion Gap (5.0-14.0) mmol/L BUN (7-18) mg/dL Creatinine (0.8-1.3) mg/dL Est Cr Clr Drug Dosing mL/min Estimated GFR (MDRD) (>60) Glucose (74-106) mg/dL Calcium (8.5-10.1) mg/dL Total Bilirubin (0.2-1.0) mg/dL AST (15-37) U/L ALT (12-78) U/L Alkaline Phosphatase (46-116) U/L Troponin I (0.000-0.056) ng/mL NT-Pro-B Natriuret Pep 10 (5-125) pg/mL Total Protein (6.4-8.2) g/dL Albumin (3.4-5.0) g/dL Globulin (2.3-3.5) g/dL Albumin/Globulin Ratio (1.2-2.2) Departure - Departure Time of Disposition: 14:10 Disposition: Home, Self-Care 01 Condition: Fair Clinical Impression: Dyspnea on exertion Referrals: Sylvie Fang PA [Primary Care Provider] - Forms: ED Department Discharge Additional Instructions: Please followup with your primary care provider in 3-5 days if not better, please call return to the emergency department with worsening of symptoms. - My Orders Last 24 Hours: My Active Orders 05/19/18 12:37 Cardiac Monitoring [RC] .As Directed UA W/MICROSCOPIC [URIN] Stat EKG 12 Lead [EK] Stat 05/19/18 12:38 EKG Documentation Completion [RC] ASDIRECTED - Assessment/Plan Last 24 Hours: My Active Orders 05/19/18 12:37 Cardiac Monitoring [RC] .As Directed UA W/MICROSCOPIC [URIN] Stat EKG 12 Lead [EK] Stat 05/19/18 12:38 EKG Documentation Completion [RC] ASDIRECTED Plan: Assessment Acuity = acute Site and laterality = dyspnea on exertion complicated gentleman with known history of diabetes mellitus type 2 as well as obstructive sleep apnea Etiology = unknown etiology Manifestations = none Location of injury = Home Lab values = CBC unremarkable, creatinine elevated 1.4 consistent chronic renal failure stage GIII a AST elevated at 84 ALTs elevated 181 consistent with elevated liver enzymes troponin is negative BNP is 10 d-dimer is 122 EKG demonstrates a normal sinus rhythm chest x-ray shows no acute process Plan I did review lab work EKG and chest x-ray results with him and asked him to follow-up with his primary care provider with for further workup which may include pulmonary function chest and/or stress test for further evaluation of his shortness of breath upon exertion This note was dictated using [employer] voice recognition software please call with any questions on syntax or grammar.
--- NOTE | 2018-05-19 13:33 | CR ---
CHEST: 2 view CLINICAL HISTORY:Syncope COMPARISON:None FINDINGS: The heart size, pulmonary vascular and hilar structures are normal. No infiltrate effusion or pneumothorax is seen. IMPRESSION: No acute cardiopulmonary process.
== END 2018-05-19 14:25 | disposition home or self-care (01) ==
LOC: JP.ED 11:58
DX: R06.09 Other forms of dyspnea (principal); I10 Essential (primary) hypertension; E11.9 Type 2 diabetes mellitus without complications; G47.33 Obstructive sleep apnea (adult) (pediatric); E66.9 Obesity, unspecified; Z79.84 Long term (current) use of oral hypoglycemic drugs; Z79.899 Other long term (current) drug therapy; Z87.891 Personal history of nicotine dependence; Z79.82 Long term (current) use of aspirin; Z88.6 Allergy status to analgesic agent; Z88.0 Allergy status to penicillin
CPT/HCPCS: 36415; 71046; 71046-26; 80053; 83880; 84484; 85025; 85379; 93005; 99284-25

== ENCOUNTER 2018-11-09 20:27 | Emergency (ER) | payer MEDICARE ==
[2018-11-09] MEDS ORDERED: Acetaminophen 325 MG Tab PO ONE (21:00)
--- NOTE | 2018-11-09 21:03 | EDM.PDOC ---
ED HPI GENERAL MEDICAL PROBLEM - General Chief Complaint: Chest Pain Stated Complaint: CHEST PAINS Time Seen by Provider: 11/09/18 20:58 Source of Information: Reports: Patient, Family, RN Notes Reviewed History Limitations: Reports: No Limitations - History of Present Illness INITIAL COMMENTS - FREE TEXT/NARRATIVE: 62-year-old gentleman presents to the emergency department today complaint of sudden onset of chest pain. He states he sneezed 3 times very violently sudden onset of chest pain below his left breast. These no nausea vomiting no diaphoresis no shortness of breath his chest is very tender to the touch Left Chest Pain Score (Numeric/FACES): 4 - Related Data Allergies Allergy/AdvReac Type Severity Reaction Status Date / Time ibuprofen Allergy Hives Verified 11/09/18 20:47 lidocaine Allergy Hives Verified 11/09/18 20:47 Penicillins Allergy Hives Verified 11/09/18 20:47 Home Meds: Home Meds Aspirin/Calcium Carbonate/Mag [Aspirin Buffered 325 mg Tab] 325 mg PO DAILY [History] Bisoprolol/Hydrochlorothiazide [Bisoprolol/HCTZ 10-6.25 MG] 6.25 - 10 tab PO DAILY 03/11/14 [History] Cetirizine [ZyrTEC] 10 mg PO DAILY 03/11/14 [History] Lisinopril [Zestril] 20 mg PO DAILY 03/11/14 [History] Grindstone-3 Acid Ethyl Esters 2 gm PO BIDAC 03/11/14 [History] Simvastatin [Zocor] 10 mg PO DAILY 03/11/14 [History] SitaGLIPtin [Januvia] 100 mg PO DAILY 03/11/14 [History] atoMOXetine [Strattera] 80 mg PO DAILY 03/11/14 [History] busPIRone HCl [Buspirone HCl] 15 mg PO BID 03/11/14 [History] metFORMIN [Glucophage] 1,000 mg PO BIDM 03/11/14 [History] metFORMIN [Glucophage] 500 mg PO DAILY 03/11/14 [History] FLUoxetine [PROzac] 10 mg PO DAILY 08/13/14 [History] Pregabalin [Lyrica] 75 mg PO TID 08/13/14 [History] Sennosides/Docusate Sodium [Senna-Docusate Sodium Tablet] 1 each PO BID [History] Oxybutynin Chloride [Ditropan Xl] 10 mg PO DAILY 05/30/16 [History] Sodium Chloride 5% [Naomi 128 5% Ophth Oint] 1 applic EYELF BEDTIME 04/21/18 [ History] Cephalexin [Keflex] 250 mg PO DAILY 04/23/18 [History] Past Medical History HEENT History: Reports: Cataract, Impaired Vision Other HEENT History: wears glasses Cardiovascular History: Reports: High Cholesterol, Hypertension Respiratory History: Reports: Asthma, Sleep Apnea, SOB Gastrointestinal History: Reports: Cholelithiasis Psychiatric History: Reports: Anxiety, Depression, Learning Disability Endocrine/Metabolic History: Reports: Diabetes, Type II, Obesity/BMI 30+ Dermatologic History: Reports: Eczema - Infectious Disease History Infectious Disease History: Reports: Chicken Pox - Past Surgical History Head Surgeries/Procedures: Reports: None HEENT Surgical History: Reports: Cataract Surgery, Other (See Below) Cardiovascular Surgical History: Reports: None Respiratory Surgical History: Reports: None GI Surgical History: Reports: None, Cholecystectomy, Colonoscopy, Hernia Repair/ Other Endocrine Surgical History: Reports: None Neurological Surgical History: Reports: None Musculoskeletal Surgical History: Reports: Arthroscopic Knee, Hip Replacement, Knee Replacement, Shoulder Replacement, Shoulder Surgery Social & Family History - Family History Family Medical History: Noncontributory - Tobacco Use Smoking Status *Q: Never Smoker Second Hand Smoke Exposure: No - Caffeine Use Caffeine Use: Reports: Coffee, Soda - Recreational Drug Use Recreational Drug Use: No ED ROS GENERAL - Review of Systems Review Of Systems: See Below Constitutional: Reports: No Symptoms HEENT: Reports: No Symptoms Respiratory: Reports: No Symptoms Cardiovascular: Reports: Chest Pain GI/Abdominal: Reports: No Symptoms : Reports: No Symptoms Musculoskeletal: Reports: No Symptoms Skin: Reports: No Symptoms Neurological: Reports: No Symptoms ED EXAM, GENERAL - Physical Exam Exam: See Below Exam Limited By: No Limitations General Appearance: Alert, WD/WN, No Apparent Distress Eye Exam: Bilateral Eye: Normal Inspection Nose: Normal Inspection, Normal Mucosa, No Blood Throat/Mouth: Normal Inspection, Normal Lips, Normal Teeth, Normal Gums, Normal Oropharynx, Normal Voice, No Airway Compromise Head: Atraumatic, Normocephalic Neck: Normal Inspection, Supple, Non-Tender, Full Range of Motion Respiratory/Chest: No Respiratory Distress, Lungs Clear, Normal Breath Sounds, No Accessory Muscle Use, Other (Very tender to palpation below the left breast) Cardiovascular: Regular Rate, Rhythm, No Murmur GI/Abdominal: Soft, Non-Tender Back Exam: Normal Inspection, Full Range of Motion. No: CVA Tenderness (R), CVA Tenderness (L) Extremities: Non-Tender Course - Vital Signs Last Recorded V/S: Last Vital Signs Temp 98.1 F 11/09/18 21:57 Pulse 76 11/09/18 21:57 Resp 18 11/09/18 21:57 BP 158/78 H 11/09/18 21:57 Pulse Ox 96 11/09/18 21:57 - Orders/Labs/Meds Orders: Active Orders 24 hr Category Date Time Status Cardiac Monitoring [RC] .As Directed Care 11/09/18 20:58 Active EKG Documentation Completion [RC] ASDIRECTED Care 11/09/18 20:59 Active EKG 12 Lead [EK] Stat Ther 11/09/18 20:59 Ordered Labs: Laboratory Tests 11/09/18 11/09/18 Range/Units 21:16 21:16 WBC 8.3 (4.5-11.0) K/uL RBC 4.98 (4.30-5.90) M/uL Hgb 13.9 (12.0-15.0) g/dL Hct 41.1 (40.0-54.0) % MCV 83 (80-98) fL MCH 28 (27-31) pg MCHC 34 (32-36) % Plt Count 193 (150-400) K/uL Neut % (Auto) 66 (36-66) % Lymph % (Auto) 19 L (24-44) % [place] % (Auto) 10 H (2-6) % Eos % (Auto) 5 H (2-4) % Baso % (Auto) 1 (0-1) % Sodium 137 L (140-148) mmol/L Potassium 4.1 (3.6-5.2) mmol/L Chloride 102 (100-108) mmol/L Carbon Dioxide 24 (21-32) mmol/L Anion Gap 15.1 H (5.0-14.0) mmol/L BUN 19 H (7-18) mg/dL Creatinine 1.3 (0.8-1.3) mg/dL Est Cr Clr Drug Dosing 57.41 mL/min Estimated GFR (MDRD) 56 L (>60) Glucose 208 H (74-106) mg/dL Calcium 10.3 H (8.5-10.1) mg/dL Total Bilirubin 0.4 (0.2-1.0) mg/dL AST 101 H (15-37) U/L ALT 203 H (12-78) U/L Alkaline Phosphatase 120 H (46-116) U/L CK-MB (CK-2) 2.9 (0-3.6) mg/mL Troponin I < 0.017 (0.000-0.056) ng/mL Total Protein 7.6 (6.4-8.2) g/dL Albumin 3.8 (3.4-5.0) g/dL Globulin 3.8 H (2.3-3.5) g/dL Albumin/Globulin Ratio 1.0 L (1.2-2.2) Meds: Medications Discontinued Medications Generic Name Dose Route Start Last Admin Trade Name Yfn PRN Reason Stop Dose Admin Acetaminophen 650 mg 11/09/18 21:00 11/09/18 21:07 Tylenol PO 11/09/18 21:01 650 mg NOW ONE Administration Departure - Departure Time of Disposition: 22:18 Disposition: Home, Self-Care 01 Condition: Fair Clinical Impression: Chest wall pain Referrals: PCP,None [Primary Care Provider] - Forms: ED Department Discharge Additional Instructions: Use Tylenol as needed for pain control, Please followup with your primary care provider in 3-5 days if not better, please call return to the emergency department with worsening of symptoms. - My Orders Last 24 Hours: My Active Orders 11/09/18 20:58 Cardiac Monitoring [RC] .As Directed 11/09/18 20:59 EKG Documentation Completion [RC] ASDIRECTED EKG 12 Lead [EK] Stat - Assessment/Plan Last 24 Hours: My Active Orders 11/09/18 20:58 Cardiac Monitoring [RC] .As Directed 11/09/18 20:59 EKG Documentation Completion [RC] ASDIRECTED EKG 12 Lead [EK] Stat Plan: Assessment Acuity = acute Site and laterality = chest wall pain Etiology = secondary to sneezing event Manifestations = none Location of injury = Home Lab values = CBC unremarkable CMP unremarkable except for glucose elevated at 28 consistent hyperglycemia AST elevated 101 ALP elevated 203 consistent elevated liver enzymes EKG demonstrates a sinus rhythm, chest x-ray no acute process Plan I did review lab work chest x-ray results with him and EKG he had some relief from the Tylenol provided emergency department him follow-up with his primary care in 3-5 days if no improvement continued use Tylenol at the appropriate pain control This note was dictated using [employer] voice recognition software please call with any questions on syntax or grammar.
[2018-11-09 21:59] VITALS: BP 158/78
--- NOTE | 2018-11-09 22:06 | CRLCR ---
INDICATION: Chest pain TECHNIQUE: Chest radiograph 2 views COMPARISON: 05/19/2018 FINDINGS: Mediastinum: The mediastinum is normal in appearance. The heart silhouette is normal in size and morphology. Lung: Both lungs are unremarkable in appearance. No sign of pleural effusion seen. No pneumothorax is identified. Musculoskeletal: Unremarkable for age. IMPRESSION: 1. No acute cardiopulmonary disease is seen. Dictated by: Seng Hendrickson MD @ 11/09/2018 22:04:57 (Electronically Signed)
== END 2018-11-09 22:25 | disposition home or self-care (01) ==
LOC: JP.ED 20:27
DX: R07.89 Other chest pain (principal); E78.00 Pure hypercholesterolemia, unspecified; I10 Essential (primary) hypertension; J45.909 Unspecified asthma, uncomplicated; E11.9 Type 2 diabetes mellitus without complications; F41.9 Anxiety disorder, unspecified; F32.9 Major depressive disorder, single episode, unspecified; Z88.8 Allergy status to other drugs, medicaments and biological substances; Z88.0 Allergy status to penicillin; Z79.899 Other long term (current) drug therapy; Z79.84 Long term (current) use of oral hypoglycemic drugs
CPT/HCPCS: 36415; 71046; 80053; 82553; 84484; 85025; 93005; 99285; A9270

== ENCOUNTER 2019-06-29 09:56 | Emergency (ER) | payer MEDICARE ==
[2019-06-29 10:10] VITALS: BP 154/77; PULSE 63
[2019-06-29] MEDS ORDERED: Sodium Chloride 0.9% 10 ML Syringe FLUSH PRN (10:46)
--- NOTE | 2019-06-29 10:50 | EDM.PDOC ---
ED HPI GENERAL MEDICAL PROBLEM - General Chief Complaint: Upper Extremity Injury/Pain Stated Complaint: RIGHT SHOULDER PAIN/NUMBNESS Time Seen by Provider: 06/29/19 10:47 Source of Information: Reports: Patient History Limitations: Reports: Intoxication - History of Present Illness INITIAL COMMENTS - FREE TEXT/NARRATIVE: pt arrived stating that he is having trouble moving his rt shoulder He also feels he has decreased sensation Onset: Gradual Duration: Day(s):, Other ( this has been going on since the ) Location: Reports: Upper Extremity, Right Associated Symptoms: Reports: No Other Symptoms Right Shoulder Pain Score (Numeric/FACES): 7 - Related Data Allergies Allergy/AdvReac Type Severity Reaction Status Date / Time ibuprofen Allergy Hives Verified 06/29/19 10:10 lidocaine Allergy Hives Verified 06/29/19 10:10 Penicillins Allergy Hives Verified 06/29/19 10:10 Home Meds: Home Meds Aspirin/Calcium Carbonate/Mag [Aspirin Buffered 325 mg Tab] 325 mg PO DAILY [History] Bisoprolol/Hydrochlorothiazide [Bisoprolol/HCTZ 10-6.25 MG] 6.25 - 10 tab PO DAILY 03/11/14 [History] Cetirizine [ZyrTEC] 10 mg PO DAILY 03/11/14 [History] Lisinopril [Zestril] 20 mg PO DAILY 03/11/14 [History] [place]-3 Acid Ethyl Esters 2 gm PO BIDAC 03/11/14 [History] Simvastatin [Zocor] 10 mg PO DAILY 03/11/14 [History] SitaGLIPtin [Januvia] 100 mg PO DAILY 03/11/14 [History] atoMOXetine [Strattera] 80 mg PO DAILY 03/11/14 [History] busPIRone HCl [Buspirone HCl] 15 mg PO BID 03/11/14 [History] metFORMIN [Glucophage] 1,000 mg PO BIDM 03/11/14 [History] metFORMIN [Glucophage] 500 mg PO DAILY 03/11/14 [History] FLUoxetine [PROzac] 10 mg PO DAILY 08/13/14 [History] Pregabalin [Lyrica] 75 mg PO TID 08/13/14 [History] Sennosides/Docusate Sodium [Senna-Docusate Sodium Tablet] 1 each PO BID [History] Oxybutynin Chloride [Ditropan Xl] 10 mg PO DAILY 05/30/16 [History] Sodium Chloride 5% [Naomi 128 5% Ophth Oint] 1 applic EYELF BEDTIME 04/21/18 [ History] Cephalexin [Keflex] 250 mg PO DAILY 04/23/18 [History] Past Medical History HEENT History: Reports: Cataract, Impaired Vision Other HEENT History: wears glasses Cardiovascular History: Reports: High Cholesterol, Hypertension Respiratory History: Reports: Asthma, Sleep Apnea, SOB Gastrointestinal History: Reports: Cholelithiasis Psychiatric History: Reports: Anxiety, Depression, Learning Disability Endocrine/Metabolic History: Reports: Diabetes, Type II, Obesity/BMI 30+ Dermatologic History: Reports: Eczema - Infectious Disease History Infectious Disease History: Reports: Chicken Pox - Past Surgical History Head Surgeries/Procedures: Reports: None HEENT Surgical History: Reports: Cataract Surgery, Other (See Below) GI Surgical History: Reports: Cholecystectomy, Colonoscopy, Hernia Repair/Other Musculoskeletal Surgical History: Reports: Hip Replacement, Knee Replacement, Shoulder Replacement, Shoulder Surgery Social & Family History - Family History Family Medical History: Noncontributory - Tobacco Use Smoking Status *Q: Never Smoker - Caffeine Use Caffeine Use: Reports: Soda - Recreational Drug Use Recreational Drug Use: No Review of Systems - Review of Systems Review Of Systems: See Below Constitutional: Reports: No Symptoms Eyes: Reports: No Symptoms Ears: Reports: No Symptoms Nose: Reports: No Symptoms Mouth/Throat: Reports: No Symptoms Respiratory: Reports: No Symptoms Cardiovascular: Reports: No Symptoms GI/Abdominal: Reports: No Symptoms Musculoskeletal: Reports: Other (pt has severe pain in his rt shoulder. He feels he has weakness in the arm and he has numbness in the arm. According to the records he has not been seen in [place] for sig amount of time. ) Skin: Reports: No Symptoms ED EXAM, GENERAL - Physical Exam Exam: See Below Free Text/Narrative:: Pt arrived with pain in his rt shoulder with weakness and numbness in the arm. Exam Limited By: No Limitations General Appearance: Alert, Anxious, Moderate Distress Ears: Normal External Exam Nose: Normal Inspection Throat/Mouth: Normal Inspection Head: Atraumatic Neck: Normal Inspection Extremities: Other (pt is moving his rt arm but here does appear to be weakness. He has not had a recent MRI. A attempt was made to have a MRI which was not productive because of all of the metal in the shoulder. Plain films were obtained. ) Course - Vital Signs Last Recorded V/S: Last Vital Signs Temp 36.0 C 06/29/19 10:16 Pulse 63 06/29/19 10:16 Resp 16 06/29/19 10:16 BP 154/77 H 06/29/19 10:16 Pulse Ox 97 06/29/19 10:16 - Orders/Labs/Meds Orders: Active Orders 24 hr Category Date Time Status Saline Lock Insert [OM.PC] Routine Oth 06/29/19 10:46 Ordered Labs: Laboratory Tests 06/29/19 06/29/19 06/29/19 Range/Units 10:46 13:50 13:50 WBC 8.5 (4.5-11.0) K/uL RBC 5.27 (4.30-5.90) M/uL Hgb 14.7 (12.0-15.0) g/dL Hct 44.1 (40.0-54.0) % MCV 84 (80-98) fL MCH 28 (27-31) pg MCHC 33 (32-36) % Plt Count 234 (150-400) K/uL Neut % (Auto) 68 H (36-66) % Lymph % (Auto) 18 L (24-44) % [place] % (Auto) 9 H (2-6) % Eos % (Auto) 4 (2-4) % Baso % (Auto) 1 (0-1) % ESR 14 (0-20) mm/hr C-Reactive Protein 0.77 H (0.0-0.3) mg/dL Meds: Medications Discontinued Medications Generic Name Dose Route Start Last Admin Trade Name Freq PRN Reason Stop Dose Admin Lorazepam 1.5 mg 06/29/19 11:02 06/29/19 11:09 Ativan IVPUSH 06/29/19 11:03 1.5 mg ONETIME ONE Administration Lorazepam 0.5 mg 06/29/19 11:26 06/29/19 11:33 Ativan IVPUSH 06/29/19 11:27 0.5 mg ONETIME ONE Administration Sodium Chloride 10 ml 06/29/19 10:46 06/29/19 11:09 Saline Flush FLUSH 10 ml ASDIRECTED PRN Administration Keep Vein Open - Re-Assessments/Exams Free Text/Narrative Re-Assessment/Exam: 06/30/19 07:51 Dr Khalil was consulted and he did look at the films. A crp was obtained which was not elevated. He felt like the pt should go back to the surgeon who did the work. Departure - Departure Time of Disposition: 15:00 Disposition: Home, Self-Care 01 Condition: Fair Clinical Impression: H/O shoulder surgery, Acute shoulder pain - Discharge Information Instructions: Shoulder Pain, Musculoskeletal Pain, Joint Pain, [id number] Referrals: Sylvie Fang PA [Primary Care Provider] - Forms: ED Department Discharge Additional Instructions: Appointment with Orthopedics at [facility] on 07/19/19 at 3:10 pm. Care Plan Goals: use the tylenol 3 for pain, start Pt for range of motion and strengthening. [facility], --appt with ortho. - My Orders Last 24 Hours: My Active Orders 06/29/19 10:46 Saline Lock Insert [OM.PC] Routine - Assessment/Plan Last 24 Hours: My Active Orders 06/29/19 10:46 Saline Lock Insert [OM.PC] Routine
[2019-06-29] MEDS ORDERED: LORazepam 2 MG/ML SDV IVPUSH ONE ×2 (11:02→11:26)
--- NOTE | 2019-06-29 13:42 | CRLCR ---
INDICATION: Right arm weakness and numbness. COMPARISON: 02/07/[address] FINDINGS/IMPRESSION: Right shoulder, 3 views. 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 No acute fracture identified. 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 Unremarkable periarticular soft tissues. Dictated by Kranthi Awad MD @ 06/29/2019 1:40:24 PM Dictated by: Kranthi Awad MD @ 06/29/2019 13:40:49 (Electronically Signed)
== END 2019-06-29 15:11 | disposition home or self-care (01) ==
LOC: JP.ED 09:56
DX: M25.511 Pain in right shoulder (principal); I10 Essential (primary) hypertension; J45.909 Unspecified asthma, uncomplicated; E78.5 Hyperlipidemia, unspecified; E11.9 Type 2 diabetes mellitus without complications; E66.9 Obesity, unspecified; Z79.84 Long term (current) use of oral hypoglycemic drugs; Z88.6 Allergy status to analgesic agent; Z88.0 Allergy status to penicillin; Z88.8 Allergy status to other drugs, medicaments and biological substances; Z79.899 Other long term (current) drug therapy; Z98.890 Other specified postprocedural states
CPT/HCPCS: 36415; 73030-RT; 85025; 85651; 86140; 96374; 99284-25; J2060

== ENCOUNTER 2019-08-19 06:34 | Day surgery (SDC) | payer MEDICARE ==
[2019-08-19] MEDS ORDERED: Lidocaine 1% with EPINEPHrine 1:100,000 50 ML MDV ONE (06:58)
[2019-08-19] MEDS ORDERED: Bupivacaine 0.5% 50 ML MDV ONE (06:58)
[2019-08-19] MEDS ORDERED: Pregabalin 75 MG Cap PO ONE (07:45)
[2019-08-19] MEDS ORDERED: Bisoprolol 5 MG Tab PO ONE (08:00)
[2019-08-19] MEDS ORDERED: Acetaminophen 500 MG Tab PO ONE (08:00)
[2019-08-19] MEDS ORDERED: Albuterol/Ipratropium 3.0-0.5 MG/3 ML Neb Soln NEB ONE (08:00)
[2019-08-19] MEDS ORDERED: Hydrochlorothiazide 25 MG Tab PO ONE (08:05)
[2019-08-19] MEDS ORDERED: Dextrose 5%-Lactated Ringers 1,000 ML IV SCH (08:30)
[2019-08-19] MEDS ORDERED: ceFAZolin 2 GM in Premix Bag 1 BAG IV ONE (08:45)
[2019-08-19] MEDS ORDERED: ceFAZolin 2 GM in Sodium Chloride 0.9% 50 ML IV ONE (09:00)
[2019-08-19] MEDS ORDERED: fentaNYL 250 MCG/5 ML SDV ONE (10:24)
[2019-08-19] MEDS ORDERED: Propofol 200 MG/20 ML SDV ONE ×2 (10:25→12:49)
[2019-08-19] MEDS ORDERED: Ondansetron 4 MG/2 ML SDV ONE (10:25)
[2019-08-19] MEDS ORDERED: Succinylcholine 200 MG/10 ML MDV ONE (10:25)
[2019-08-19] MEDS ORDERED: Rocuronium 50 MG/5 ML Vial ONE (10:25)
[2019-08-19] MEDS ORDERED: Dexamethasone 4 MG/ML SDV ONE (10:25)
[2019-08-19] MEDS ORDERED: Neostigmine Methylsulfate 1 MG/ML 5 ML Syringe ONE (10:25)
[2019-08-19] MEDS ORDERED: Glycopyrrolate 0.2 MG/ML 5 ML MDV ONE (10:25)
[2019-08-19] MEDS ORDERED: Tamsulosin 0.4 MG Cap.ER PO ONE (10:48)
[2019-08-19] MEDS ORDERED: ePHEDrine 50 MG/ML SDV ONE (12:22)
[2019-08-19] MEDS ORDERED: Ketorolac 60 MG/2 ML SDV ONE (13:00)
[2019-08-19] MEDS ORDERED: 50% Dextrose in Water 50 ML Syringe IVPUSH PRN (14:56)
[2019-08-19] MEDS ORDERED: Glucose Gel 15 GM in 37.5 GM Tube PO PRN (14:56)
[2019-08-19] MEDS ORDERED: Glucagon,Human Recombinant 1 MG Vial IM PRN (14:56)
[2019-08-19] MEDS ORDERED: Insulin Lispro 100 Unit/ML 3 ML KwikPen SUBCUT PRN (14:56)
[2019-08-19] MEDS ORDERED: HYDROmorphone 0.5 MG/0.5 ML Syringe IVPUSH PRN (15:00)
[2019-08-19] MEDS ORDERED: HYDROmorphone 1 MG/ML Syringe IV PRN (15:01)
[2019-08-19] MEDS ORDERED: Acetaminophen/HYDROcodone 325-5 MG Tab PO PRN (15:01)
[2019-08-19] MEDS ORDERED: Ondansetron 4 MG/2 ML SDV IVPUSH PRN (15:01)
[2019-08-19] MEDS ORDERED: Albuterol/Ipratropium 3.0-0.5 MG/3 ML Neb Soln INH PRN (15:02)
[2019-08-19] MEDS ORDERED: hydrOXYzine HCL 100 MG/2 ML SDV IM PRN (15:03)
[2019-08-19] MEDS: Lactated Ringers 1,000 ML IV SCH (15:50)
[2019-08-19] MEDS: metFORMIN 500 MG Tab PO SCH (17:01)
[2019-08-19] MEDS: ceFAZolin 1 GM in Premix Bag 1 BAG IV SCH (17:44)
[2019-08-19] MEDS ORDERED: Montelukast 10 MG Tab PO SCH (21:00)
[2019-08-19] MEDS ORDERED: Tamsulosin 0.4 MG Cap.ER PO SCH (21:00)
[2019-08-19] MEDS: busPIRone 10 MG, busPIRone 5 MG PO SCH ×2 (21:15)
[2019-08-19] MEDS: Fluticasone-Salmeterol 113-14 MCG Powder Inhalant INH SCH (21:15)
[2019-08-19] MEDS: Pregabalin 75 MG Cap PO SCH (21:18)
[2019-08-19] MEDS: Albuterol/Ipratropium 3.0-0.5 MG/3 ML Neb Soln INH SCH (21:18)
[2019-08-20] MEDS: Lactated Ringers 1,000 ML IV SCH (02:24)
[2019-08-20] MEDS: ceFAZolin 1 GM in Premix Bag 1 BAG IV SCH ×2 (02:26→10:03)
[2019-08-20] MEDS: Albuterol/Ipratropium 3.0-0.5 MG/3 ML Neb Soln INH SCH ×2 (07:14→10:45)
[2019-08-20] MEDS: Fluticasone-Salmeterol 113-14 MCG Powder Inhalant INH SCH (07:14)
[2019-08-20] MEDS: metFORMIN 500 MG Tab PO SCH (07:25)
[2019-08-20 07:46] VITALS: BP 134/59; PULSE 67
[2019-08-20] MEDS: busPIRone 10 MG, busPIRone 5 MG PO SCH ×2 (08:32)
[2019-08-20] MEDS: Pregabalin 75 MG Cap PO SCH (08:43)
[2019-08-20] MEDS ORDERED: Cetirizine 10 MG Tab PO SCH (09:00)
[2019-08-20] MEDS ORDERED: Lisinopril 20 MG Tab PO SCH (09:00)
[2019-08-20] MEDS ORDERED: FLUoxetine 10 MG Cap PO SCH (09:00)
[2019-08-20] MEDS ORDERED: metFORMIN 500 MG Tab PO SCH (12:00)
--- NOTE | 2019-08-20 15:12 | DISCH ---
ADMISSION DIAGNOSES: 1. Right inguinal hernia. 2. Diabetes type 2. 3. Dyslipidemia. 4. Essential hypertension. 5. Hyperlipidemia. 6. Obesity, BMI of 39.9. 7. Obstructive sleep apnea. 8. Attention deficit disorder. 9. Adjustment disorder with depressed mood and anxiety. DISCHARGE DIAGNOSIS: Open repair of recurrent right inguinal hernia, right ilioinguinal nerve and ileal nerve at risk for entrapment. Date of surgery, 08/19/2019. Surgeon, Damir Flores MD. HISTORY: Alexander Huber is a 63-year-old male with recurrent right inguinal hernia. After preoperative evaluation and discussion of possible risks and possible complications, he wished to proceed with surgical procedure. HOSPITAL COURSE: Alexander had his surgery on 08/19/2019. He had no operative complications. On postoperative day #1, his activity was good. He was eating good. He did have trouble with urinary retention, but then was able to urinate without any difficulty, and he was able to be discharged to home on postoperative day 1. DISPOSITION: Discharged to home. CONDITION: Stable and improving. FOLLOWUP: Followup appointment with Damir Flores MD, on 09/01/2019 at 9 a.m. DISCHARGE MEDICATIONS: He is to take Tylenol for pain and to start on Flomax 0.4 mg 1 at bedtime and to continue for 90 days with 3 refills. He is to resume home medications: 1. Tylenol with Codeine 1 to 2 every 4 hours p.r.n. pain. 2. Albuterol inhaler 1 puff every 4 hours p.r.n. wheezing. 3. Aspirin Buffered 325 mg, take one daily. 4. Ziac 10/6.25 mg 1 tablet daily. 5. Bisoprolol/hydrochlorothiazide 10/6.25 mg, take 1 to 2 tabs oral daily. 6. Keflex 250 mg oral twice daily. 7. Zyrtec 10 mg oral daily. 8. Clindamycin 600 mg oral daily as needed. 9. Prozac 10 mg daily. 10.Breo Ellipta 100/25 mcg, use 1 each inhalation daily. 11.Lisinopril 20 mg oral daily. 12.Meclizine 25 mg oral 3 times a day. 13.Singulair 10 mg oral at bedtime. 14.[place]-3 2 mg oral twice daily. 15.Ditropan 10 mg oral daily. 16.Lyrica 75 mg oral 3 times a day. 17.Senna S 1 tablet twice daily. 18.Zocor 10 mg oral daily. 19.Januvia 100 mg oral daily. 20.Vitamin E 100 international units oral daily. 21.Strattera 80 mg oral daily. 22.BuSpar 15 mg oral twice daily. 23.Glucophage 500 mg oral daily and Glucophage 1000 mg oral daily. DIET: Usual diet as tolerated, drink 8 to 10 glasses of water a day. ACTIVITY: No lifting greater than 10 pounds for 6 weeks. Other activity: Walk at least 6 times daily inside your home. Do not drive for 1 week. SHOWER/BATHING: May shower. DISCHARGE INSTRUCTIONS: Notify provider if any fever, increased pain, swelling, and redness, nausea or vomiting. Keep site clean and dry. Wear abdominal binder for 4 weeks and then as tolerated. SPECIAL INSTRUCTION: Use incentive spirometer 10 times every hour while awake for 1 week.
--- NOTE | 2019-08-27 08:48 | OR ---
DATE OF PROCEDURE: 08/19/2019 SURGEON: Damir Flores MD PREOPERATIVE DIAGNOSIS: Recurrent right inguinal hernia. POSTOPERATIVE DIAGNOSES: 1. Recurrent right inguinal hernia. 2. Right ilioinguinal nerve and iliohypogastric nerve at risk for scar entrapment. OPERATIVE PROCEDURES: Right inguinal exploration with: 1. Repair of recurrent right inguinal hernia with mesh (87099). 2. Excision of portion of right ilioinguinal nerve (99839). 3. Excision of portions of right iliohypogastric nerve (95264). ANESTHESIA: General. INDICATIONS FOR PROCEDURE: This is a 63-year-old presenting with recurrent right inguinal hernia that appears to be coming in lateral to the previous repair. Medially, the previous repair appeared to be intact. The plan is to proceed with a right inguinal exploration with repair with mesh plug as needed. Potential risks of the procedure including bleeding, infection, recurrence of the hernia, injury to underlying viscera were all reviewed, as well as possible chronic pain following the procedure. To limit problems with recurrent pain, nerves in the vicinity of the mesh to be placed will be excised at the lateral aspect of the incision. The patient is aware of this and knows that there will be some higher risk of continuous anesthesia following the procedure, but this would limit the chances of chronic neuropathic pain postoperatively. DETAILS OF PROCEDURE: The patient was taken to the operating room and after general endotracheal anesthetic was induced, the abdomen and groin areas were prepped and draped. The previous right inguinal incision was made and carried slightly more laterally, carried down through the skin, subcutaneous tissue, and through the external oblique aponeurosis. Subaponeurotic flaps were then raised superiorly and medially. Cord structures were preserved. Somewhat lateral to the previous repair, which otherwise was intact medially, there was prolapse of fatty tissue. This would be a direct hernia, as it appeared to be all still medial to the inferior epigastric vessels. This was gradually dissected free and transversalis fascia overlying this divided, and dissection into the plane behind the conjoint tendon and underlying superior segment was undertaken. A large mesh plug was then placed into the defect. This affixed medially to the Aram's ligament with tacking screws and thereafter sutured to the adjacent mesh plug with some 0 Vicryl stitch, to the underside of the conjoint tendon superiorly and laterally with horizontal mattress of 3-0 Vicryl stitch as well. A stitch was then taken underneath the shelving portion of the inguinal ligament inferiorly as well with some horizontal mattress sutures of 0 Vicryl stitch. At that point, the conjoint tendon was approximated to the shelving portion of the inguinal ligament with a 0 Vicryl stitch. The ilioinguinal nerve and iliohypogastric nerve both appeared to be at risk for scar entrapment with the flat portion of mesh plug system being placed. These were then identified and excised to the far lateral aspect of the incision. The flat portion of the mesh plug system was then placed across the floor and underneath the cord structures and sutured there with some 3-0 Vicryl stitch and also affixed in position with some tacking screws. The external oblique aponeurosis was then placed over this and closed with a 3-0 Vicryl stitch, and the subcutaneous tissue with 4-0 Vicryl stitch, as was the subcuticular stitch. The area was anesthetized with 1% lidocaine mixed with Marcaine. The patient was taken to the recovery room in satisfactory condition. There were no evident complications. Damir Flores MD /[id number]
== END 2019-08-20 12:30 | disposition home or self-care (01) ==
LOC: JP.SDS 06:34 → JP.MS 13:00 → JP.SDS 08-20 12:30
PROVIDERS: ATTEND Surgery
DX: K40.91 Unilateral inguinal hernia, without obstruction or gangrene, recurrent (principal); G57.81 Other specified mononeuropathies of right lower limb; E11.9 Type 2 diabetes mellitus without complications; E78.5 Hyperlipidemia, unspecified; I10 Essential (primary) hypertension; G47.33 Obstructive sleep apnea (adult) (pediatric); F98.8 Other specified behavioral and emotional disorders with onset usually occurring in childhood and adolescence; F43.23 Adjustment disorder with mixed anxiety and depressed mood; E66.9 Obesity, unspecified; Z79.82 Long term (current) use of aspirin; Z79.899 Other long term (current) drug therapy; Z79.84 Long term (current) use of oral hypoglycemic drugs; Z88.4 Allergy status to anesthetic agent; Z88.8 Allergy status to other drugs, medicaments and biological substances; Z88.6 Allergy status to analgesic agent; Z88.0 Allergy status to penicillin; Z87.891 Personal history of nicotine dependence; Z68.39 Body mass index [BMI] 39.0-39.9, adult
CPT/HCPCS: 49520; 64784; 82962; 88302; 94640; 94762; A9270; C1713; C1781; J0330; J0690; J1100; J1815; J1885; J2405; J2704; J3010; J3490; J7050; J7120; J7121; J2710; J7620-GY

== ENCOUNTER 2019-08-21 10:42 | Emergency (ER) | payer MEDICARE ==
[2019-08-21 10:48] VITALS: BP 149/76; PULSE 67
[2019-08-21] MEDS ORDERED: Acetaminophen/Codeine 300-30 MG Tab PO ONE (10:59)
--- NOTE | 2019-08-21 11:03 | EDM.PDOC ---
ED HPI GENERAL MEDICAL PROBLEM - General Chief Complaint: General Stated Complaint: MEDICAL VIA [facility] Time Seen by Provider: 08/21/19 10:55 Source of Information: Reports: Patient, EMS, Old Records History Limitations: Reports: No Limitations - History of Present Illness INITIAL COMMENTS - FREE TEXT/NARRATIVE: 63 yo male went home recently from this hospital after R inguinal hernia repair by Dr. Flores. According to records he was sent home with Tylenol #3 for pain. Praneeth says when he went home "there was nothing for pain in his bag". He did have some Tylenol #3 at home from before that he took. He has had normal bowel and bladder fxn. No vomiting or fever. Here from his home via EMS, lives alone. Has taken only 2 tablets of the Tylenol #3 since discharge. According to Rosario Whittaker that we talked to on the phone today Alexander declined the offer of pain meds when he went home, said he had a few at home and that was enough. Onset: Gradual (since surgery) Duration: Day(s):, Getting Worse Location: Reports: Pelvis (R groin) Quality: Reports: Ache, Burning Severity: Moderate Improves with: Reports: Rest Worsens with: Reports: Movement Context: Reports: Other (See HPI) Associated Symptoms: Reports: No Other Symptoms Treatments FILLER SHAKER: Reports: Other (see below) (none) Right Lower Abdomen Pain Score (Numeric/FACES): 8 - Related Data Allergies Allergy/AdvReac Type Severity Reaction Status Date / Time ibuprofen Allergy Hives Verified 08/21/19 10:45 lidocaine Allergy Hives Verified 08/21/19 10:45 Penicillins Allergy Hives Verified 08/21/19 10:45 sodium hypochlorite solution Allergy Dizziness Verified 08/21/19 10:45 Home Meds: Home Meds Aspirin/Calcium Carbonate/Mag [Aspirin Buffered 325 mg Tab] 325 mg PO DAILY [History] Bisoprolol/Hydrochlorothiazide [Bisoprolol/HCTZ 10-6.25 MG] 6.25 - 10 tab PO DAILY 03/11/14 [History] Cetirizine [ZyrTEC] 10 mg PO DAILY 03/11/14 [History] Lisinopril [Zestril] 20 mg PO DAILY 03/11/14 [History] [place]-3 Acid Ethyl Esters 2 gm PO BIDAC 03/11/14 [History] Simvastatin [Zocor] 10 mg PO DAILY 03/11/14 [History] SitaGLIPtin [Januvia] 100 mg PO DAILY 03/11/14 [History] atoMOXetine [Strattera] 80 mg PO DAILY 03/11/14 [History] busPIRone HCl [Buspirone HCl] 15 mg PO BID 03/11/14 [History] metFORMIN [Glucophage] 1,000 mg PO BIDM 03/11/14 [History] metFORMIN [Glucophage] 500 mg PO DAILY 03/11/14 [History] FLUoxetine [PROzac] 10 mg PO DAILY 08/13/14 [History] Pregabalin [Lyrica] 75 mg PO TID 08/13/14 [History] Sennosides/Docusate Sodium [Senna-Docusate Sodium Tablet] 1 each PO BID [History] Oxybutynin Chloride [Ditropan Xl] 10 mg PO DAILY 05/30/16 [History] Cephalexin [Keflex] 250 mg PO BID 04/23/18 [History] Albuterol Sulfate [Proair Hfa] 1 puff INH Q4HR PRN 08/17/19 [History] Meclizine [Antivert] 25 mg PO TID PRN 08/17/19 [History] Montelukast Sodium [Singulair] 10 mg PO BEDTIME 08/17/19 [History] Vitamin E 100 unit PO DAILY 08/17/19 [History] Bisoprolol Fumarate/HCTZ [Ziac 10-6.25 MG] 1 tab PO DAILY 08/19/19 [History] Fluticasone/Vilanterol [Breo Ellipta 100-25 MCG Inhalation Kit] 1 each IH DAILY 08/19/19 [History] Tamsulosin HCl [Flomax] 0.4 mg PO DAILY #90 cap.er.24h 08/20/19 [Rx] Past Medical History HEENT History: Reports: Cataract, Impaired Vision Other HEENT History: wears glasses Cardiovascular History: Reports: High Cholesterol, Hypertension Respiratory History: Reports: Asthma, Sleep Apnea, SOB Other Respiratory History: cpap Gastrointestinal History: Reports: Cholelithiasis Genitourinary History: Reports: None Musculoskeletal History: Reports: Other (See Below) Other Musculoskeletal History: right shoulder pain Neurological History: Reports: None Psychiatric History: Reports: Anxiety, Depression, Learning Disability Endocrine/Metabolic History: Reports: Diabetes, Type II, Obesity/BMI 30+ Hematologic History: Reports: None Immunologic History: Reports: None Oncologic (Cancer) History: Reports: None Dermatologic History: Reports: Eczema - Infectious Disease History Infectious Disease History: Reports: Chicken Pox, Measles - Past Surgical History Head Surgeries/Procedures: Reports: None HEENT Surgical History: Reports: Cataract Surgery, Other (See Below) Cardiovascular Surgical History: Reports: None Respiratory Surgical History: Reports: None GI Surgical History: Reports: Cholecystectomy, Colonoscopy, EGD, Hernia Repair/ Other Endocrine Surgical History: Reports: None Neurological Surgical History: Reports: None Musculoskeletal Surgical History: Reports: Hip Replacement, Knee Replacement, Shoulder Replacement, Shoulder Surgery Dermatological Surgical History: Reports: None Social & Family History - Family History Family Medical History: Noncontributory - Tobacco Use Smoking Status *Q: Never Smoker Second Hand Smoke Exposure: No - Caffeine Use Caffeine Use: Reports: None - Recreational Drug Use Recreational Drug Use: No ED ROS GENERAL - Review of Systems Review Of Systems: See Below Constitutional: Reports: No Symptoms HEENT: Reports: No Symptoms Respiratory: Reports: No Symptoms GI/Abdominal: Reports: Distension (apparently normal for him. ), Other (R groin pain at site of his hernia repair. ). Denies: Abdominal Pain, Black Stool, Bloody Stool, Constipation, Diarrhea, Hematemesis, Hematochezia, Melena, Nausea , Vomiting : Reports: No Symptoms Musculoskeletal: Reports: No Symptoms Skin: Reports: Other (surgical wound does not look infected R groin.) Neurological: Reports: No Symptoms Psychiatric: Reports: No Symptoms ED EXAM, GENERAL - Physical Exam Exam: See Below Exam Limited By: No Limitations General Appearance: Alert, WD/WN, No Apparent Distress Eye Exam: Bilateral Eye: Normal Inspection Ears: Normal External Exam, Normal Canal, Hearing Grossly Normal Ear Exam: Bilateral Ear: Auricle Normal, Canal Normal Nose: Normal Inspection, No Blood Throat/Mouth: Normal Inspection, Normal Lips, Normal Oropharynx, Normal Voice, No Airway Compromise Head: Atraumatic, Normocephalic Neck: Normal Inspection Respiratory/Chest: No Respiratory Distress, Lungs Clear, Normal Breath Sounds, No Accessory Muscle Use Cardiovascular: Regular Rate, Rhythm, No Edema GI/Abdominal: Normal Bowel Sounds, Non-Tender, Distended (normal for him. ). No : No Distention, Guarding, Rigid, Rebound, Tender Back Exam: Normal Inspection Extremities: Normal Inspection, Normal Range of Motion, Non-Tender, No Pedal Edema Neurological: Alert, Oriented, CN II-XII Intact, Normal Cognition, No Motor/ Sensory Deficits Psychiatric: Normal Affect, Normal Mood Skin Exam: Warm, Dry, Normal Color, No Rash. No: Intact (surgical wound not infected) Course - Vital Signs Text/Narrative:: Patient states his pain is tolerable after the 2 Tylenol #3's. Last Recorded V/S: Last Vital Signs Temp 36.3 C 08/21/19 10:50 Pulse 67 08/21/19 10:50 Resp 20 08/21/19 10:50 BP 149/76 H 08/21/19 10:50 Pulse Ox 96 08/21/19 10:50 - Orders/Labs/Meds Meds: Medications Discontinued Medications Generic Name Dose Route Start Last Admin Trade Name Freq PRN Reason Stop Dose Admin Acetaminophen/Codeine Phosphate 2 tab 08/21/19 10:59 08/21/19 11:05 Tylenol With Codeine No.3 300mg/30mg PO 08/21/19 11:00 2 tab ONETIME ONE Administration Departure - Departure Time of Disposition: 11:58 Disposition: Home, Self-Care 01 Condition: Good Clinical Impression: Post-op pain - Discharge Information *PRESCRIPTION DRUG MONITORING PROGRAM REVIEWED*: No *COPY OF PRESCRIPTION DRUG MONITORING REPORT IN PATIENT HEMAL: No Referrals: Sylvie Fang PA [Primary Care Provider] - Forms: ED Department Discharge Additional Instructions: Take Tylenol #3 one or two every 6 hrs as needed. Stay in touch with Rosario Whittaker if you have any other needs or questions. Get plenty of fluids and fiber to prevent constipation from your codeine in the pain medicine. Sepsis Event Note - Evaluation Sepsis Screening Result: No Definite Risk - Focused Exam Vital Signs: Vital Signs Temp Pulse Resp BP Pulse Ox 08/21/19 10:50 36.3 C 67 20 149/76 H 96 08/21/19 10:47 36.3 C 67 20 149/76 H 96 Date Exam was Performed: 08/21/19 Time Exam was Performed: 11:57
== END 2019-08-21 12:11 | disposition home or self-care (01) ==
LOC: JP.ED 10:42
DX: G89.18 Other acute postprocedural pain (principal); R10.31 Right lower quadrant pain; I10 Essential (primary) hypertension; E11.9 Type 2 diabetes mellitus without complications; E78.00 Pure hypercholesterolemia, unspecified; J45.909 Unspecified asthma, uncomplicated; F41.9 Anxiety disorder, unspecified; F32.9 Major depressive disorder, single episode, unspecified; E66.9 Obesity, unspecified; Z68.36 Body mass index [BMI] 36.0-36.9, adult; Z90.49 Acquired absence of other specified parts of digestive tract; Z88.8 Allergy status to other drugs, medicaments and biological substances; Z79.84 Long term (current) use of oral hypoglycemic drugs; Z79.82 Long term (current) use of aspirin; Z79.899 Other long term (current) drug therapy
CPT/HCPCS: 99283; A9270

== ENCOUNTER 2019-09-03 05:55 | Day surgery (SDC) | payer MEDICARE ==
[2019-09-03] MEDS ORDERED: Acetaminophen 500 MG Tab PO ONE (07:30)
[2019-09-03] MEDS ORDERED: Albuterol/Ipratropium 3.0-0.5 MG/3 ML Neb Soln NEB ONE (08:00)
[2019-09-03] MEDS ORDERED: Dextrose 5%-Lactated Ringers 1,000 ML IV SCH (08:00)
[2019-09-03] MEDS ORDERED: Bupivacaine 0.5% 30 ML SDV ONE (08:19)
[2019-09-03] MEDS ORDERED: fentaNYL 100 MCG/2 ML SDV ONE (08:34)
[2019-09-03] MEDS ORDERED: Midazolam 1 MG/ML 2 ML SDV ONE (08:34)
[2019-09-03] MEDS ORDERED: Propofol 200 MG/20 ML SDV ONE ×2 (08:34→08:58)
[2019-09-03] MEDS ORDERED: Lidocaine 0.5% 50 ML SDV ONE (08:34)
[2019-09-03] MEDS: ceFAZolin 2 GM in Sodium Chloride 0.9% 50 ML IV ONE ×2 (08:37→11:13)
[2019-09-03 11:12] VITALS: BP 116/73; PULSE 49
--- NOTE | 2019-09-07 20:40 | OR ---
DATE OF PROCEDURE: 09/03/2019 SURGEON: Damir Flores MD PREOPERATIVE DIAGNOSIS: Ganglion cyst of left ring finger. POSTOPERATIVE DIAGNOSIS: Ganglion cyst of left ring finger. OPERATIVE PROCEDURE: Excision of ganglion cyst of left ring finger (06718). ANESTHESIA: IV block plus sedation. INDICATION FOR PROCEDURE: This is a 63-year-old presenting with increasingly symptomatic ganglion on the dorsal aspect of his left ring finger. This appears to be emanating from the area of the proximal interphalangeal joint. The plan is to proceed with excision of this. Potential risks including bleeding, infection, recurrence of the cyst, possible injury to the digital nerve and/or digital artery adjacent to the cyst were gone over and the patient wishes to proceed. DETAILS OF PROCEDURE: The patient was taken to the operating room and placed in a supine position after an IV block was placed affecting the left forearm and hand as well as IV sedation administered. Left forearm and hand were then prepped and draped. A transverse incision was then made over the cyst. This is on the dorsum of the left ring finger leading toward the radial side of the finger. Just proximal to the proximal interphalangeal joint, a transverse incision was made, carried down through the skin and subcutaneous tissue. The cyst was encountered, dissected free down to the level of the point where it appeared to exit out of the interphalangeal joint. This was excised, flushed with that joint, and the base was then cauterized to facilitate some additional scarring in that area. The plane of dissection was directly on the surface of the cyst to avoid injury to the digital nerve and artery adjacent to the cyst. The incision was then closed with some 5-0 Vicryl stitch deep and 5-0 Prolene skin stitch. Dressing was applied. The patient was taken to the recovery room in satisfactory condition. Damir Flores MD /[id number]
== END 2019-09-03 11:00 | disposition home or self-care (01) ==
LOC: JP.SDS 05:55
PROVIDERS: ATTEND Surgery
DX: M67.442 Ganglion, left hand (principal); G47.33 Obstructive sleep apnea (adult) (pediatric); F41.9 Anxiety disorder, unspecified; E11.9 Type 2 diabetes mellitus without complications; Z88.0 Allergy status to penicillin; Z88.8 Allergy status to other drugs, medicaments and biological substances
CPT/HCPCS: 88304; 94640; A9270-GY; J0690; J2001; J2250; J2704; J3010; J3490; J7050; J7121; J7620-GY

== ENCOUNTER 2020-02-07 06:29 | Day surgery (SDC) | payer MEDICARE ==
[2020-02-07] MEDS ORDERED: Lidocaine 1% with EPINEPHrine 1:100,000 50 ML MDV ONE (06:45)
[2020-02-07] MEDS ORDERED: Midazolam 1 MG/ML 2 ML SDV ONE (07:14)
[2020-02-07] MEDS ORDERED: fentaNYL 100 MCG/2 ML SDV ONE (07:14)
[2020-02-07] MEDS ORDERED: Propofol 200 MG/20 ML SDV ONE (07:14)
[2020-02-07] MEDS ORDERED: Lidocaine 0.5% 50 ML SDV ONE (07:15)
[2020-02-07] MEDS ORDERED: Dextrose 5%-Lactated Ringers 1,000 ML IV SCH (07:30)
[2020-02-07] MEDS ORDERED: Albuterol/Ipratropium 3.0-0.5 MG/3 ML Neb Soln NEB ONE (07:45)
[2020-02-07] MEDS ORDERED: ceFAZolin 2 GM in Premix Bag 1 BAG IV ONE (08:00)
[2020-02-07 11:07] VITALS: BP 157/79; PULSE 55
--- NOTE | 2020-02-09 19:14 | OR ---
DATE OF PROCEDURE: 02/07/2020 SURGEON: Damir Flores MD PREOPERATIVE DIAGNOSIS: Probable ganglion cyst involving right small finger and right ring finger. POSTOPERATIVE DIAGNOSIS: Probable ganglion cyst involving right small finger and right ring finger. PROCEDURES: 1. Excision of probable ganglion cyst of right small finger (13341). 2. Excision of probable ganglion cyst of right ring finger (33600). ANESTHESIA: IV block plus sedation. INDICATION FOR PROCEDURE: This is a 64-year-old male presenting with 2 nodules involving the above-noted fingers. In fact, he has had a similar presentation in the left hand with finger nodule shown to be a ganglion cyst on pathology. Plan is to proceed with excision of each of these nodules. Potential risks including bleeding, infection, injury possible recurrence over time were all reviewed, and the patient wishes to proceed. DETAILS OF PROCEDURE: The patient was taken to the operating room and placed in a supine position. IV block was placed right in the right forearm and hand, and right hand was then prepped and draped. On the ulnar aspect of the mid right small finger, a nodule was present, and a transversely oriented elliptical incision was made, carried down through the skin and subcutaneous tissue. In this case, there was quite minimal soft tissue present. There was a small amount of cystic fluid identified. The tissue to a large extent was obliterated by means of electrocautery. This incision was then closed with some 5-0 Vicryl stitch deep and then a 5-0 Prolene skin stitch. Attention was taken to the right ring finger. This lesion was on the mid finger on the radial aspect. Similar incision and excision were undertaken. In this case, there was a little bit more substantial tissue, and once again, cystic fluid was seen confirming this being a ganglion cyst. Closure was as per the small finger and dressings applied. The patient was taken to the recovery room in satisfactory condition. Damir Flores MD /[id number]
== END 2020-02-07 11:23 | disposition home or self-care (01) ==
LOC: JP.SDS 06:29
PROVIDERS: ATTEND Surgery
DX: L57.0 Actinic keratosis (principal); I10 Essential (primary) hypertension; E66.9 Obesity, unspecified; F41.9 Anxiety disorder, unspecified; Z88.0 Allergy status to penicillin; Z88.6 Allergy status to analgesic agent; Z68.37 Body mass index [BMI] 37.0-37.9, adult
CPT/HCPCS: 26160; J0690; J2001; J2250; J2704; J3010; J7121; J7620-GY

== ENCOUNTER 2020-03-22 09:16 | Emergency (ER) | payer MEDICARE ==
[2020-03-22 09:59] VITALS: BP 150/62; PULSE 62
--- NOTE | 2020-03-22 11:26 | EDM.PDOC ---
ED HPI GENERAL MEDICAL PROBLEM - General Chief Complaint: Lower Extremity Injury/Pain Stated Complaint: HURT TOE ON LEFT FOOT Time Seen by Provider: 03/22/20 10:15 Source of Information: Reports: Patient History Limitations: Reports: No Limitations - History of Present Illness INITIAL COMMENTS - FREE TEXT/NARRATIVE: 64-year-old male with a painful left great toe. He stubbed his toe yesterday afternoon, today it is too sore to walk on. There is some redness in the MP joint but no deformity. No other injury. He says he has to walk on the side of his foot because it is too painful to bear weight. Onset: Sudden Duration: Day(s): (About 24 hours ago) Location: Reports: Lower Extremity, Left Worsens with: Reports: Other (Weightbearing and ambulation is painful), Movement Associated Symptoms: Reports: No Other Symptoms Left Toe-[place] Pain Score (Numeric/FACES): 5 - Related Data Allergies Allergy/AdvReac Type Severity Reaction Status Date / Time ibuprofen Allergy Hives Verified 03/22/20 10:03 lidocaine Allergy Hives Verified 03/22/20 10:03 Penicillins Allergy Hives Verified 03/22/20 10:03 sodium hypochlorite solution Allergy Dizziness Verified 03/22/20 10:03 Home Meds: Home Meds Aspirin/Calcium Carbonate/Mag [Aspirin Buffered 325 mg Tab] 325 mg PO DAILY 03/11/14 [History] Cetirizine [ZyrTEC] 10 mg PO DAILY 03/11/14 [History] Lisinopril [Zestril] 20 mg PO DAILY 03/11/14 [History] [place]-3 Acid Ethyl Esters 2 gm PO BIDAC 03/11/14 [History] Simvastatin [Zocor] 10 mg PO DAILY 03/11/14 [History] SitaGLIPtin [Januvia] 100 mg PO DAILY 03/11/14 [History] atoMOXetine [Strattera] 80 mg PO DAILY 03/11/14 [History] busPIRone HCl [Buspirone HCl] 15 mg PO BID 03/11/14 [History] metFORMIN [Glucophage] 1,000 mg PO BIDM 03/11/14 [History] metFORMIN [Glucophage] 500 mg PO .NOON 03/11/14 [History] FLUoxetine [PROzac] 10 mg PO DAILY 08/13/14 [History] Pregabalin [Lyrica] 75 mg PO TID 08/13/14 [History] Sennosides/Docusate Sodium [Senna-Docusate Sodium Tablet] 1 each PO BID 08/13/14 [History] Oxybutynin Chloride [Ditropan Xl] 10 mg PO DAILY 05/30/16 [History] cephALEXin [Keflex] 250 mg PO BID 04/23/18 [History] Albuterol Sulfate [Proair Hfa] 1 puff INH Q4HR PRN 08/17/19 [History] Montelukast Sodium [Singulair] 10 mg PO BEDTIME 08/17/19 [History] Bisoprolol/Hydrochlorothiazide [Ziac 10-6.25 MG] 1 tab PO DAILY 08/19/19 [Hist ory] Fluticasone/Vilanterol [Breo Ellipta 100-25 MCG Inhalation Kit] 1 each IH DAILY 08/19/19 [History] Past Medical History HEENT History: Reports: Cataract, Impaired Vision Other HEENT History: wears glasses Cardiovascular History: Reports: High Cholesterol, Hypertension Respiratory History: Reports: Asthma, Sleep Apnea, SOB Other Respiratory History: cpap Gastrointestinal History: Reports: Chronic Constipation Genitourinary History: Reports: None Musculoskeletal History: Reports: Other (See Below) Other Musculoskeletal History: right shoulder pain Neurological History: Reports: None Psychiatric History: Reports: Anxiety, Depression, Learning Disability Endocrine/Metabolic History: Reports: Diabetes, Type II, Obesity/BMI 30+ Hematologic History: Reports: None Immunologic History: Reports: None Oncologic (Cancer) History: Reports: None Dermatologic History: Reports: Eczema - Infectious Disease History Infectious Disease History: Reports: Chicken Pox, Measles, Mumps - Past Surgical History HEENT Surgical History: Reports: Cataract Surgery, Other (See Below) Cardiovascular Surgical History: Reports: None Respiratory Surgical History: Reports: None GI Surgical History: Reports: None Endocrine Surgical History: Reports: None Neurological Surgical History: Reports: None Musculoskeletal Surgical History: Reports: Hip Replacement, Knee Replacement, Shoulder Replacement, Shoulder Surgery Dermatological Surgical History: Reports: None Social & Family History - Family History Family Medical History: Noncontributory - Tobacco Use Smoking Status *Q: Former Smoker Used Tobacco, but Quit: Yes Month/Year Tobacco Last Used: 1993 - Caffeine Use Caffeine Use: Reports: Soda - Recreational Drug Use Recreational Drug Use: No Review of Systems - Review of Systems Review Of Systems: See Below Constitutional: Denies: Fever Respiratory: Reports: No Symptoms Cardiovascular: Reports: No Symptoms Skin: Reports: Erythema (There is some slight erythema to the MP joint of the large toe on the left foot). Denies: Bruising Neurological: Denies: Paresthesia ED EXAM, GENERAL - Physical Exam Exam: See Below Exam Limited By: No Limitations General Appearance: Alert, No Apparent Distress Respiratory/Chest: No Respiratory Distress Extremities: No Pedal Edema, Other (Exam is limited to the left foot. He has a mildly erythematous MP joint, very tender to palpation and passive range of motion. No significant deformity or bruising.) Neurological: Alert, Oriented. No: Disoriented Course - Vital Signs Last Recorded V/S: Last Vital Signs Temp 96.8 F L 03/22/20 10:11 Pulse 62 03/22/20 10:11 Resp 20 03/22/20 10:11 BP 150/62 H 03/22/20 10:11 Pulse Ox 96 03/22/20 10:11 - Re-Assessments/Exams Free Text/Narrative Re-Assessment/Exam: 03/22/20 11:25 An x-ray of the left foot was obtained and shows fairly significant degenerative arthritic changes of the MP joint of the large toe but no fracture. Patient is unable to take anti-inflammatories, so I encouraged him to just continue taking Tylenol 3 and increase activity as tolerated. Recheck next week if not improving satisfactorily. Departure - Departure Time of Disposition: 11:36 Disposition: Home, Self-Care 01 Clinical Impression: Sprain of great toe of left foot Qualifiers: Encounter type: initial encounter Qualified Code(s): S93.502A - Unspecified sprain of left great toe, initial encounter - Discharge Information Instructions: Musculoskeletal Pain Referrals: Sylvie Fang PA [Primary Care Provider] - Forms: ED Department Discharge Care Plan Goals: Continue with Tylenol 3 as needed for extra pain control and increase activity as tolerated. Recheck next week if not improving satisfactorily. Sepsis Event Note (ED) - Evaluation Sepsis Screening Result: No Definite Risk - Focused Exam Vital Signs: Vital Signs Temp Pulse Resp BP Pulse Ox 03/22/20 10:11 96.8 F L 62 20 150/62 H 96 03/22/20 09:57 96.8 F L 62 20 150/62 H 96
--- NOTE | 2020-03-22 12:43 | CR ---
Toes Great Toe Lt TA CLINICAL HISTORY: Pain, trauma FINDINGS: Patient is severe osteophytic change in the first MTP joint with periarticular spurring. There is some soft tissue swelling in the first MTP joint. No fracture is identified. IMPRESSION: Severe osteophytic change first MTP joint No fracture
== END 2020-03-22 11:36 | disposition home or self-care (01) ==
LOC: JP.ED 09:16
DX: S93.502A Unspecified sprain of left great toe, initial encounter (principal); I10 Essential (primary) hypertension; E78.00 Pure hypercholesterolemia, unspecified; J45.909 Unspecified asthma, uncomplicated; F41.9 Anxiety disorder, unspecified; F32.9 Major depressive disorder, single episode, unspecified; E11.9 Type 2 diabetes mellitus without complications; E66.9 Obesity, unspecified; Z68.37 Body mass index [BMI] 37.0-37.9, adult; Z87.891 Personal history of nicotine dependence; Z88.6 Allergy status to analgesic agent; Z88.8 Allergy status to other drugs, medicaments and biological substances; Z88.0 Allergy status to penicillin; Z79.84 Long term (current) use of oral hypoglycemic drugs; Z79.899 Other long term (current) drug therapy; Z79.82 Long term (current) use of aspirin; X58.XXXA Exposure to other specified factors, initial encounter; W22.8XXA Striking against or struck by other objects, initial encounter
CPT/HCPCS: 73660-26-TA; 73660-TA; 99282; 99283-25

== ENCOUNTER 2020-06-20 08:14 | Day surgery (SDC) | payer MEDICARE ==
[~2020-06-20 08:14] MED LIST: Bupivacaine 0.5% 50 ML MDV ONE; Lidocaine 0.5% 50 ML SDV ONE; fentaNYL 250 MCG/5 ML SDV ONE
[2020-06-20] MEDS ORDERED: Acetaminophen 500 MG Tab PO ONE (08:15)
[2020-06-20] MEDS ORDERED: Dextrose 5%-Lactated Ringers 1,000 ML IV SCH (08:30)
[2020-06-20] MEDS ORDERED: Albuterol 8 GM Inhaler INH ONE (09:30)
[2020-06-20] MEDS ORDERED: Propofol 200 MG/20 ML SDV ONE ×3 (09:41→10:36)
[2020-06-20] MEDS ORDERED: Midazolam 1 MG/ML 2 ML SDV ONE (09:41)
[2020-06-20] MEDS ORDERED: Succinylcholine 200 MG/10 ML MDV ONE (09:41)
[2020-06-20] MEDS ORDERED: Rocuronium 50 MG/5 ML Vial ONE (09:41)
[2020-06-20] MEDS ORDERED: ceFAZolin 2 GM in Premix Bag 1 BAG IV ONE (10:00)
[2020-06-20] MEDS ORDERED: Hydrogen Peroxide 3% Top Soln 240 ML Bottle ONE (11:09)
[2020-06-20 12:39] VITALS: PULSE 51
[2020-06-20 12:40] VITALS: BP 115/46
--- NOTE | 2020-06-27 15:12 | OR ---
DATE OF PROCEDURE: 06/20/2020 SURGEON: Damir Flores MD PREOPERATIVE DIAGNOSIS: Ganglion/mucous cyst involving right ring finger, right middle finger, and left thumb. POSTOPERATIVE DIAGNOSIS: Ganglion/mucous cyst involving right ring finger, right middle finger, and left thumb. OPERATIVE PROCEDURES: 1. Excision of ganglion/mucous cyst involving the right ring finger (65438). 2. Excision of ganglion/mucous cyst, right middle finger (72432). 3. Excision of ganglion/mucous cyst, left thumb (94364). ANESTHESIA: Local plus digital block. INDICATIONS FOR PROCEDURE: This is a 64-year-old presenting with some recurrent cystic-type lesions in the fingers as outlined above. DESCRIPTION OF PROCEDURE: The lesions on the right hand are both on the radial aspect of the right ring finger and middle finger and more or less on the dorsum of the left thumb over the distal phalange. In each case, digital blocks have been placed and the arms and hands were prepped and draped while the patient received some IV sedation. In each case, transverse incisions were made, carried down through the skin and subcutaneous tissue, and the scar-type tissue along with some mucoid-containing material was excised. The base in each case was cauterized. Care was taken to avoid injury to the tendons and/or digital nerves during the dissection. Incision was closed with some 5-0 Vicryl stitch deep and then a 5-0 Prolene skin stitch. Dressings were applied. The patient was taken to the recovery room in satisfactory condition. There were no evident complications. Damir Flores MD /[id number]
== END 2020-06-20 13:05 | disposition home or self-care (01) ==
LOC: JP.SDS 08:14
PROVIDERS: ATTEND Surgery
DX: M67.442 Ganglion, left hand (principal); M67.441 Ganglion, right hand; F98.8 Other specified behavioral and emotional disorders with onset usually occurring in childhood and adolescence; E11.9 Type 2 diabetes mellitus without complications; E78.5 Hyperlipidemia, unspecified; I10 Essential (primary) hypertension; F41.1 Generalized anxiety disorder; G47.33 Obstructive sleep apnea (adult) (pediatric); E66.01 Morbid (severe) obesity due to excess calories; Z98.890 Other specified postprocedural states; Z79.899 Other long term (current) drug therapy; Z79.84 Long term (current) use of oral hypoglycemic drugs; Z88.8 Allergy status to other drugs, medicaments and biological substances; Z88.0 Allergy status to penicillin; Z87.891 Personal history of nicotine dependence; Z68.41 Body mass index [BMI] 40.0-44.9, adult
CPT/HCPCS: 26160; 36415; 80053; 83735; 84100; 85027; A9270; J0690; J2250; J2704; J3010; J3490; J7121; 88304; J0330; J2001

== ENCOUNTER 2021-01-26 04:24 | Day surgery (SDC) | payer MEDICARE ==
[2021-01-26] MEDS ORDERED: Bupivacaine 0.5% 50 ML MDV ONE (06:48)
[2021-01-26] MEDS ORDERED: Dextrose 5%-Lactated Ringers 1,000 ML IV SCH (07:00)
[2021-01-26] MEDS ORDERED: Propofol 200 MG/20 ML SDV ONE ×2 (07:12→07:36)
[2021-01-26] MEDS ORDERED: Midazolam 1 MG/ML 2 ML SDV ONE (07:12)
[2021-01-26] MEDS ORDERED: fentaNYL 100 MCG/2 ML SDV ONE (07:12)
[2021-01-26] MEDS ORDERED: Lidocaine 0.5% 50 ML SDV ONE (07:12)
[2021-01-26] MEDS ORDERED: ceFAZolin 2 GM in Premix Bag 1 BAG IV ONE (07:15)
[2021-01-26 09:33] VITALS: BP 135/57; PULSE 55
--- NOTE | 2021-02-05 16:01 | OR ---
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 OPERATIVE PROCEDURES: 1. Excision of probable rheumatoid nodule of right index finger (52494). 2. Excision of probable rheumatoid nodule of right ring finger (72524). ANESTHESIA: IV block plus sedation. INDICATION FOR PROCEDURE: A 65-year-old male presenting with some bothersome nodules on the radial aspect of his right index and ring fingers. He has had these excised several times previously. The plan is to proceed with excision of these. Potential risks including bleeding, infection, possible recurrence of the nodules digital nerves during the dissection were reviewed, and the patient wishes to proceed. DETAILS OF PROCEDURE: The patient was taken to the operating room. After an IV block was placed affecting the right forearm and hand and IV sedation administered, those areas were prepped and draped. At both locations in the mid right index and ring fingers on radial aspect, transverse incisions were made, carried down through the skin and subcutaneous tissue, and the thickened sclerotic nodular tissue excised. These involved some component of the underlying joint in both locations as well. Care was made to maintain a tight dissection on the nodules so as to minimize chances of injury to the digital nerves, and after removal on each side, the incision was closed with some 4-0 Vicryl stitch deep and then 5-0 Prolene skin stitch. Dressings were applied. The patient was taken to the recovery room in satisfactory condition. Damir Flores MD /[id number]
== END 2021-01-26 09:30 | disposition home or self-care (01) ==
LOC: JP.SDS 04:24
PROVIDERS: ATTEND Surgery
DX: L28.0 Lichen simplex chronicus (principal); G47.33 Obstructive sleep apnea (adult) (pediatric); J44.9 Chronic obstructive pulmonary disease, unspecified; I10 Essential (primary) hypertension; E11.9 Type 2 diabetes mellitus without complications; Z87.891 Personal history of nicotine dependence
CPT/HCPCS: 11420; 88305; J0690; J2250; J2704; J3010; J7121; J3490

== ENCOUNTER 2021-03-09 11:52 | Emergency (ER) | payer MEDICARE ==
[2021-03-09 12:42] VITALS: BP 149/67; PULSE 70
--- NOTE | 2021-03-09 13:14 | EDM.PDOC ---
ED HPI GENERAL MEDICAL PROBLEM - General Stated Complaint: RIGHT TOP SIDE GUMS ARE BLEEDING Time Seen by Provider: 03/09/21 13:00 Source of Information: Reports: Patient History Limitations: Reports: No Limitations - History of Present Illness INITIAL COMMENTS - FREE TEXT/NARRATIVE: This is a 65 year old male presenting with right upper gum pain and bleeding. Patient reports that this morning he noticed some discomfort and bleeding from his right upper back gums. He reports that he put his finger back there and noticed some blood on it. This has occurred intermittently this morning. It is not actively bleeding currently. He wears dentures and recently got new dentures ~2 months ago. He denies any inciting event: he wasn't brushing or eating or anything when he noticed it. He takes an aspirin daily, but no other anticoagulants. He tried to see his dentist, but they are closed on Fridays. - Related Data Allergies Allergy/AdvReac Type Severity Reaction Status Date / Time ibuprofen Allergy Hives Verified 01/25/21 10:57 lidocaine Allergy Hives Verified 01/25/21 10:57 Penicillins Allergy Hives Verified 01/25/21 10:57 sodium hypochlorite solution Allergy Dizziness Verified 01/25/21 10:57 Home Meds: Home Meds Aspirin/Calcium Carbonate/Mag [Aspirin Buffered 325 mg Tab] 325 mg PO DAILY 03/11/14 [History] Cetirizine [ZyrTEC] 10 mg PO DAILY 03/11/14 [History] Lisinopril [Zestril] 20 mg PO DAILY 03/11/14 [History] [place]-3 Acid Ethyl Esters 2 gm PO BIDAC 03/11/14 [History] Simvastatin [Zocor] 10 mg PO DAILY 03/11/14 [History] SitaGLIPtin [Januvia] 100 mg PO DAILY 03/11/14 [History] atoMOXetine [Strattera] 80 mg PO DAILY 03/11/14 [History] busPIRone HCl [Buspirone HCl] 15 mg PO BID 03/11/14 [History] metFORMIN [Glucophage] 1,000 mg PO BIDM 03/11/14 [History] metFORMIN [Glucophage] 500 mg PO .NOON 03/11/14 [History] FLUoxetine [PROzac] 10 mg PO DAILY 08/13/14 [History] Pregabalin [Lyrica] 75 mg PO TID 08/13/14 [History] Sennosides/Docusate Sodium [Senna-Docusate Sodium Tablet] 1 each PO BID 08/13/14 [History] Oxybutynin Chloride [Ditropan Xl] 10 mg PO DAILY 05/30/16 [History] cephALEXin [Keflex] 250 mg PO BID 04/23/18 [History] Albuterol Sulfate [Proair Hfa] 1 puff INH Q4HR PRN 08/17/19 [History] Bisoprolol/Hydrochlorothiazide [Ziac 10-6.25 MG] 1 tab PO DAILY 08/19/19 [History] Fluticasone/Vilanterol [Breo Ellipta 100-25 MCG Inhalation Kit] 2 puff IH DAILY 08/19/19 [History] Baclofen 10 mg PO QID PRN 06/16/20 [History] Clindamycin HCl 600 mg PO ASDIRECTED 06/16/20 [History] Meclizine HCl 25 mg PO TID PRN 06/16/20 [History] Melatonin 5 - 10 mg PO BEDTIME 06/16/20 [History] Montelukast Sodium [Singulair] 10 mg PO BEDTIME 01/25/21 [History] Tamsulosin HCl [Flomax] 0.4 mg PO DAILY 01/25/21 [History] Vitamin E 100 unit PO DAILY 01/25/21 [History] oxyCODONE HCl [Roxicodone] 10 mg PO Q4H PRN 01/25/21 [History] Past Medical History HEENT History: Reports: Cataract, Impaired Vision Other HEENT History: wears glasses Cardiovascular History: Reports: High Cholesterol, Hypertension Respiratory History: Reports: Asthma, Sleep Apnea, SOB Other Respiratory History: cpap Gastrointestinal History: Reports: Chronic Constipation Genitourinary History: Reports: None Musculoskeletal History: Reports: Other (See Below) Other Musculoskeletal History: right shoulder pain Neurological History: Reports: None Psychiatric History: Reports: Anxiety, Depression, Learning Disability Endocrine/Metabolic History: Reports: Diabetes, Type II, Obesity/BMI 30+ Hematologic History: Reports: None Immunologic History: Reports: None Oncologic (Cancer) History: Reports: None Dermatologic History: Reports: Eczema - Infectious Disease History Infectious Disease History: Reports: Chicken Pox, Measles - Past Surgical History Head Surgeries/Procedures: Reports: None HEENT Surgical History: Reports: Cataract Surgery, Other (See Below) Other HEENT Surgeries/Procedures: ear surgery r/t tumor pushing on ear Cardiovascular Surgical History: Reports: None Respiratory Surgical History: Reports: None GI Surgical History: Reports: None Male Surgical History: Reports: None Endocrine Surgical History: Reports: None Other Endocrine Surgeries/Procedures: blood sugar this am at home 99 Neurological Surgical History: Reports: None Musculoskeletal Surgical History: Reports: Ganglion Cyst, Hip Replacement, Knee Replacement, Shoulder Replacement, Shoulder Surgery Other Musculoskeletal Surgeries/Procedures:: right shoulder replaced tree times with infection on second replacement Dermatological Surgical History: Reports: None Social & Family History - Family History Family Medical History: No Pertinent Family History - Caffeine Use Caffeine Use: Reports: None ED ROS GENERAL - Review of Systems Review Of Systems: Comprehensive ROS is negative, except as noted in HPI. ED EXAM, GENERAL - Physical Exam Exam: See Below Exam Limited By: No Limitations General Appearance: Alert, No Apparent Distress Nose: No Blood Throat/Mouth: Other (MMM. There is a small abraded area of the gums on the right upper buccal side. No swelling or flucutance appreciated. no bleeding.) Head: Atraumatic, Normocephalic Respiratory/Chest: No Respiratory Distress Neurological: Alert, Oriented Skin Exam: Warm, Dry Course - Vital Signs Last Recorded V/S: Last Vital Signs Temp 97.8 F 03/09/21 12:40 Pulse 70 03/09/21 12:40 Resp 16 03/09/21 12:40 BP 149/67 H 03/09/21 12:40 Pulse Ox 95 03/09/21 12:40 Departure - Departure Time of Disposition: 13:21 Disposition: Home, Self-Care 01 Clinical Impression: Abrasion of upper gum, Mouth pain - Discharge Information Referrals: Sylvie Fang PA [Primary Care Provider] - Additional Instructions: There is no evidence of infection or bleeding of your gums at this time. It appears that your dentures are not fitting well and are rubbing on your gums causing the pain and bleeding you experienced earlier. I suggest wearing your dentures the least amount possible over the weekend and eating soft foods. Please follow up with your dentist/meat puller early next week. Sepsis Event Note (ED) - Focused Exam Vital Signs: Vital Signs Temp Pulse Resp BP Pulse Ox 03/09/21 12:40 97.8 F 70 16 149/67 H 95 - Problem List Review Problem List Initiated/Reviewed/Updated: Yes
== END 2021-03-09 13:38 | disposition home or self-care (01) ==
LOC: JP.ED 11:52
DX: S00.512A Abrasion of oral cavity, initial encounter (principal); I10 Essential (primary) hypertension; E78.00 Pure hypercholesterolemia, unspecified; J45.909 Unspecified asthma, uncomplicated; E11.9 Type 2 diabetes mellitus without complications; E66.9 Obesity, unspecified; Z68.41 Body mass index [BMI] 40.0-44.9, adult; Z88.6 Allergy status to analgesic agent; Z88.4 Allergy status to anesthetic agent; Z88.0 Allergy status to penicillin; Z88.8 Allergy status to other drugs, medicaments and biological substances; Z79.82 Long term (current) use of aspirin; Z79.84 Long term (current) use of oral hypoglycemic drugs; Z79.899 Other long term (current) drug therapy; X58.XXXA Exposure to other specified factors, initial encounter
CPT/HCPCS: 99282

== ENCOUNTER 2021-09-21 08:07 | Day surgery (SDC) | payer MEDICARE ==
[2021-09-21] MEDS ORDERED: Propofol 200 MG/20 ML SDV ONE (08:29)
[2021-09-21] MEDS ORDERED: Midazolam 1 MG/ML 2 ML SDV ONE (08:29)
[2021-09-21] MEDS ORDERED: fentaNYL 100 MCG/2 ML SDV ONE (08:29)
[2021-09-21] MEDS ORDERED: Sodium Chloride 0.9% 1,000 ML IV SCH (08:45)
[2021-09-21] MEDS ORDERED: Lidocaine 0.5% 50 ML SDV ONE (09:40)
[2021-09-21] MEDS ORDERED: Lidocaine 0.5% 50 ML SDV INFILT ONE (09:45)
[2021-09-21 10:57] VITALS: BP 133/60; PULSE 63
== END 2021-09-21 11:05 | disposition home or self-care (01) ==
LOC: JP.SDS 08:07
PROVIDERS: ATTEND Surgery
DX: S80.12XA Contusion of left lower leg, initial encounter (principal); G47.33 Obstructive sleep apnea (adult) (pediatric); J44.9 Chronic obstructive pulmonary disease, unspecified; I12.9 Hypertensive chronic kidney disease with stage 1 through stage 4 chronic kidney disease, or unspecified chronic kidney disease; E11.22 Type 2 diabetes mellitus with diabetic chronic kidney disease; N18.9 Chronic kidney disease, unspecified
CPT/HCPCS: 10140; J2250; J2704; J3010; J3490; J7030

== ENCOUNTER 2021-11-04 03:19 | Emergency (ER) | payer MEDICARE ==
[2021-11-04 02:23] VITALS: BP 140/40; PULSE 63
== END 2021-11-04 04:04 | disposition home or self-care (01) ==
LOC: JP.ED 03:19
DX: S02.5XXA Fracture of tooth (traumatic), initial encounter for closed fracture (principal); A69.1 Other Vincent's infections; E78.00 Pure hypercholesterolemia, unspecified; I10 Essential (primary) hypertension; E11.9 Type 2 diabetes mellitus without complications; E66.9 Obesity, unspecified; Z68.30 Body mass index [BMI] 30.0-30.9, adult; Z79.82 Long term (current) use of aspirin; Z79.899 Other long term (current) drug therapy; Z79.84 Long term (current) use of oral hypoglycemic drugs; Z88.0 Allergy status to penicillin; Z88.8 Allergy status to other drugs, medicaments and biological substances
CPT/HCPCS: 99282; 99284

== ENCOUNTER 2022-05-08 16:17 | Emergency (ER) | payer MEDICARE ==
[2022-05-08 16:35] VITALS: BP 120/59; PULSE 77
[2022-05-08 17:44] LABS: ESTIMATED GFR 47 mL/min (>60); TROPONIN I HIGH SENSITIVITY 7.5 pg/mL (<=60.3)
[2022-05-08] MEDS ORDERED: Azithromycin 250 MG Tab PO ONE (18:16)
== END 2022-05-08 18:34 | disposition home or self-care (01) ==
LOC: JP.ED 16:17
DX: J40 Bronchitis, not specified as acute or chronic (principal); I10 Essential (primary) hypertension; E11.9 Type 2 diabetes mellitus without complications; E66.9 Obesity, unspecified; Z68.36 Body mass index [BMI] 36.0-36.9, adult; Z88.6 Allergy status to analgesic agent; Z88.0 Allergy status to penicillin; Z88.4 Allergy status to anesthetic agent; Z88.8 Allergy status to other drugs, medicaments and biological substances; Z79.899 Other long term (current) drug therapy; Z79.82 Long term (current) use of aspirin; Z79.84 Long term (current) use of oral hypoglycemic drugs; Z20.822 Contact with and (suspected) exposure to COVID-19
CPT/HCPCS: 36415; 71046; 80053; 83690; 84484; 85025; 93005; 99285; A9270; U0002

== ENCOUNTER 2022-06-16 09:16 | Emergency (ER) | payer OTHER, MEDICARE ==
[2022-06-16 09:55] VITALS: BP 148/70; PULSE 63
[2022-06-16] MEDS: Acetaminophen 500 MG Tab PO ONE (12:05)
== END 2022-06-16 12:07 | disposition home or self-care (01) ==
LOC: JP.ED 09:16
DX: R55 Syncope and collapse (principal); G44.319 Acute post-traumatic headache, not intractable; J45.909 Unspecified asthma, uncomplicated; E78.00 Pure hypercholesterolemia, unspecified; I10 Essential (primary) hypertension; E11.9 Type 2 diabetes mellitus without complications; E66.9 Obesity, unspecified; Z68.37 Body mass index [BMI] 37.0-37.9, adult; Z88.6 Allergy status to analgesic agent; Z88.4 Allergy status to anesthetic agent; Z88.0 Allergy status to penicillin; Z88.8 Allergy status to other drugs, medicaments and biological substances; Z79.899 Other long term (current) drug therapy; Z79.84 Long term (current) use of oral hypoglycemic drugs; W18.39XA Other fall on same level, initial encounter
CPT/HCPCS: 36415; 70450; 80048; 85025; 93005; 99284

== ENCOUNTER 2022-06-30 09:12 | Emergency (ER) | payer OTHER, MEDICARE ==
[2022-06-30 09:27] VITALS: BP 151/78; PULSE 67
[2022-06-30] MEDS ORDERED: Bacitracin Oint 1 GM U/D Packet TOP ONE (09:36)
== END 2022-06-30 09:45 | disposition home or self-care (01) ==
LOC: JP.ED 09:12
DX: S91.201A Unspecified open wound of right great toe with damage to nail, initial encounter (principal); E78.00 Pure hypercholesterolemia, unspecified; I10 Essential (primary) hypertension; J45.909 Unspecified asthma, uncomplicated; E11.9 Type 2 diabetes mellitus without complications; E66.9 Obesity, unspecified; Z68.36 Body mass index [BMI] 36.0-36.9, adult; Z88.6 Allergy status to analgesic agent; Z88.4 Allergy status to anesthetic agent; Z88.0 Allergy status to penicillin; Z88.8 Allergy status to other drugs, medicaments and biological substances; Z79.899 Other long term (current) drug therapy; Z79.84 Long term (current) use of oral hypoglycemic drugs; V49.9XXA Car occupant (driver) (passenger) injured in unspecified traffic accident, initial encounter; Y92.410 Unspecified street and highway as the place of occurrence of the external cause
CPT/HCPCS: 99283

== ENCOUNTER 2022-07-03 09:11 | Emergency (ER) | payer MEDICARE ==
[2022-07-03 09:26] VITALS: BP 117/73; PULSE 69
[2022-07-03] MEDS ORDERED: Bacitracin Oint 1 GM U/D Packet TOP ONE (09:36)
== END 2022-07-03 10:59 | disposition home or self-care (01) ==
LOC: JP.ED 09:11
DX: S91.201A Unspecified open wound of right great toe with damage to nail, initial encounter (principal); E78.00 Pure hypercholesterolemia, unspecified; I10 Essential (primary) hypertension; J45.909 Unspecified asthma, uncomplicated; E11.9 Type 2 diabetes mellitus without complications; E66.9 Obesity, unspecified; Z68.41 Body mass index [BMI] 40.0-44.9, adult; Z88.6 Allergy status to analgesic agent; Z88.4 Allergy status to anesthetic agent; Z88.0 Allergy status to penicillin; Z88.8 Allergy status to other drugs, medicaments and biological substances; Z79.899 Other long term (current) drug therapy; Z79.84 Long term (current) use of oral hypoglycemic drugs; W22.8XXA Striking against or struck by other objects, initial encounter
CPT/HCPCS: 99282

== ENCOUNTER 2022-08-12 07:20 | Day surgery (SDC) | payer MEDICARE ==
[~2022-08-12 07:20] MED LIST changes: +Bacitracin Oint 1 GM U/D Packet ONE; +Bupivacaine 0.5% 30 ML SDV ONE; -Bupivacaine 0.5% 50 ML MDV ONE; -Lidocaine 0.5% 50 ML SDV ONE; +Lidocaine 1% with EPINEPHrine 1:100,000 50 ML MDV ONE; -fentaNYL 250 MCG/5 ML SDV ONE
[2022-08-12] MEDS ORDERED: Acetaminophen 500 MG Tab PO ONE (07:30)
[2022-08-12] MEDS ORDERED: Lactated Ringers 1,000 ML IV SCH (08:00)
[2022-08-12] MEDS ORDERED: ceFAZolin 2 GM in Premix Bag 1 BAG IV ONE (08:41)
[2022-08-12] MEDS ORDERED: Midazolam 1 MG/ML 2 ML SDV ONE (08:42)
[2022-08-12] MEDS ORDERED: fentaNYL 100 MCG/2 ML SDV ONE (08:42)
[2022-08-12] MEDS ORDERED: Propofol 200 MG/20 ML SDV ONE (08:42)
[2022-08-12] MEDS ORDERED: ceFAZolin 2 GM in Sodium Chloride 0.9% 50 ML IV ONE (09:00)
[2022-08-12 10:27] VITALS: BP 137/60; PULSE 59
== END 2022-08-12 10:50 | disposition home or self-care (01) ==
LOC: JP.SDS 07:20
PROVIDERS: ATTEND Student in an Organized Health Care Education/Training Program
DX: R22.42 Localized swelling, mass and lump, left lower limb (principal); I10 Essential (primary) hypertension; E78.5 Hyperlipidemia, unspecified; E11.9 Type 2 diabetes mellitus without complications; E66.9 Obesity, unspecified; Z68.41 Body mass index [BMI] 40.0-44.9, adult; Z88.0 Allergy status to penicillin; Z91.041 Radiographic dye allergy status; Z88.6 Allergy status to analgesic agent; Z88.4 Allergy status to anesthetic agent; Z79.899 Other long term (current) drug therapy
CPT/HCPCS: 11402; 12031; A9270; J2250; J2704; J3010; J7120; J3490

== ENCOUNTER 2023-03-01 19:00 | Emergency (ER) | payer MEDICARE ==
[2023-03-01] MEDS ORDERED: Sodium Chloride 0.9% 10 ML Syringe FLUSH PRN (20:47)
[2023-03-01] MEDS ORDERED: ceFAZolin 1 GM in Premix Bag 1 BAG IV ONE (20:47)
[2023-03-01] MEDS ORDERED: diphenhydrAMINE 50 MG/ML SDV IVPUSH ONE (20:49)
[2023-03-01] MEDS ORDERED: ceFAZolin 1 GM Vial ONE (21:08)
[2023-03-01] MEDS ORDERED: Water For Injection, Sterile 20 ML ONE (21:10)
[2023-03-01] MEDS ORDERED: ceFAZolin 1 GM Vial IM ONE (21:12)
[2023-03-01 21:36] VITALS: BP 137/67; PULSE 56
== END 2023-03-01 21:45 ==
LOC: JP.ED 19:00
DX: T19.0XXA Foreign body in urethra, initial encounter (principal); E78.00 Pure hypercholesterolemia, unspecified; I10 Essential (primary) hypertension; J45.909 Unspecified asthma, uncomplicated; E11.9 Type 2 diabetes mellitus without complications; E66.9 Obesity, unspecified; Z88.4 Allergy status to anesthetic agent; Z88.0 Allergy status to penicillin; Z88.8 Allergy status to other drugs, medicaments and biological substances; Z79.899 Other long term (current) drug therapy; Z79.84 Long term (current) use of oral hypoglycemic drugs; Z68.37 Body mass index [BMI] 37.0-37.9, adult
CPT/HCPCS: 72170; 96372; 99285; J0690

== ENCOUNTER 2023-08-20 13:15 | Emergency (ER) | payer MEDICARE ==
[2023-08-20 13:24] VITALS: BP 144/69; PULSE 82
[2023-08-20] MEDS ORDERED: Lidocaine/Epineph/Tetracaine 3 ML Syringe TOP ONE (15:02)
== END 2023-08-20 16:25 | disposition home or self-care (01) ==
LOC: JP.ED 13:15
DX: L57.0 Actinic keratosis (principal); I10 Essential (primary) hypertension; E78.00 Pure hypercholesterolemia, unspecified; J45.909 Unspecified asthma, uncomplicated; E11.9 Type 2 diabetes mellitus without complications; E66.9 Obesity, unspecified; Z88.6 Allergy status to analgesic agent; Z88.4 Allergy status to anesthetic agent; Z88.0 Allergy status to penicillin; Z88.8 Allergy status to other drugs, medicaments and biological substances; Z79.899 Other long term (current) drug therapy
CPT/HCPCS: 99283; A9270

== ENCOUNTER 2023-10-07 08:43 | Day surgery (SDC) | payer MEDICARE ==
[2023-10-07] MEDS: Dextrose 5%-Lactated Ringers 1,000 ML IV SCH (09:21)
[2023-10-07] MEDS ORDERED: Propofol 200 MG/20 ML SDV ONE (10:03)
[2023-10-07] MEDS ORDERED: fentaNYL 100 MCG/2 ML SDV ONE (10:03)
[2023-10-07 11:36] VITALS: PULSE 63
[2023-10-07 12:07] VITALS: BP 136/74
== END 2023-10-07 12:30 | disposition home or self-care (01) ==
LOC: JP.SDS 08:43
PROVIDERS: ATTEND Family Medicine
DX: K92.0 Hematemesis (principal); I10 Essential (primary) hypertension; J44.9 Chronic obstructive pulmonary disease, unspecified; E11.9 Type 2 diabetes mellitus without complications; E78.5 Hyperlipidemia, unspecified; Z88.0 Allergy status to penicillin; Z88.6 Allergy status to analgesic agent
CPT/HCPCS: 43239; J2704; J3010; J7121; 88305

== ENCOUNTER 2023-10-08 10:23 | Emergency (ER) | payer MEDICARE ==
[2023-10-08] MEDS ORDERED: Sodium Chloride 0.9% 10 ML Syringe FLUSH PRN (10:25)
[2023-10-08] MEDS: Pantoprazole 40 MG Vial IVPUSH ONE (11:58)
[2023-10-08 12:25] LABS: BASOPHILS ABSOLUTE AUTO 0.03 K/uL (0.00-0.10); BASOPHILS PERCENT AUTO 0.3 % (0.1-1.3); EOSINOPHILS ABSOLUTE AUTO 0.05 K/uL (0.00-0.40); EOSINOPHILS PERCENT AUTO 0.5 % (0.0-5.4); HEMATOCRIT 44.9 % (38.4-49.7); HEMOGLOBIN 15.3 g/dL (12.9-16.9); IMMATURE GRAN ABSOLUTE AUTO 0.05 K/uL (0.00-0.23); IMMATURE GRAN PERCENT AUTO 0.5 % (0.0-0.7); LYMPHOCYTES ABSOLUTE AUTO 0.28 K/uL (0.8-3.3); LYMPHOCYTES PERCENT AUTO 2.6 % (11.4-47.7); MEAN CORPUSCULAR HEMOGLOBIN 27.9 pg (31.6-35.5); MEAN CORPUSCULAR HGB CONC 34.1 g/dL (31.6-35.5); MEAN CORPUSCULAR VOLUME 81.8 fL (81.4-99.0); MONOCYTES ABSOLUTE AUTO 0.35 K/uL (0.20-0.90); MONOCYTES PERCENT AUTO 3.3 % (3.3-12.6); NEUTROPHILS ABSOLUTE AUTO 9.86 K/uL (1.0-7.6); NEUTROPHILS PERCENT AUTO 92.8 % (40.0-78.1); PLATELET COUNT,PLT 187 K/uL (130-375); RED BLOOD CELL COUNT 5.49 M/uL (4.14-5.76); WHITE BLOOD CELL COUNT,WBC 10.6 K/uL (3.2-11.0)
[2023-10-08 12:48] LABS: ALANINE AMINOTRANSFERASE,ALT 127 U/L (12-78); ALBUMIN 3.8 g/dL (3.4-5.0); ALKALINE PHOSPHATASE 81 U/L (46-116); ASPARTATE AMNIOTRANSFERASE,AST 72 U/L (15-37); BILIRUBIN TOTAL 0.8 mg/dL (0.2-1.0); BLOOD UREA NITROGEN,BUN 35 mg/dL (7-18); CALCIUM 8.7 mg/dL (8.5-10.1); CARBON DIOXIDE,CO2 22 mmol/L (21-32); CHLORIDE,CL 102 mmol/L (100-108); CREATININE 1.6 mg/dL (0.8-1.3); EST CRCL DRUG DOSING (CG) 43.57 mL/min; ESTIMATED GFR 46 mL/min (>60); GLUCOSE RANDOM 183 mg/dL (74-106); POTASSIUM,K 5.2 mmol/L (3.6-5.2); PROTEIN TOTAL,TP 7.5 g/dL (6.4-8.2); SODIUM,NA 134 mmol/L (140-148)
[2023-10-08 12:52] LABS: ANION GAP 15.2 mmol/L (5.0-14.0)
[2023-10-08] MEDS: Pantoprazole 40 MG Tab.CR PO ONE (13:13)
[2023-10-08] MEDS: Ondansetron 4 MG Tab.DIS PO ONE (13:13)
[2023-10-08 13:15] VITALS: BP 122/68; PULSE 99
== END 2023-10-08 13:20 | disposition home or self-care (01) ==
LOC: JP.ED 10:23
DX: K29.70 Gastritis, unspecified, without bleeding (principal); K29.80 Duodenitis without bleeding; K42.9 Umbilical hernia without obstruction or gangrene; E11.9 Type 2 diabetes mellitus without complications; I10 Essential (primary) hypertension; J45.909 Unspecified asthma, uncomplicated; E78.00 Pure hypercholesterolemia, unspecified; E66.9 Obesity, unspecified; Z88.0 Allergy status to penicillin; Z88.8 Allergy status to other drugs, medicaments and biological substances; Z91.040 Latex allergy status; Z68.37 Body mass index [BMI] 37.0-37.9, adult; Z79.899 Other long term (current) drug therapy
CPT/HCPCS: 36415; 71046; 74019; 80053; 85025; 99284; A9270; Q0162; 99283